=== PATIENT | male | born 1965 | race Caucasian/White ===

== ENCOUNTER 2019-09-05 17:21 | Inpatient (IN) ==
--- OUTSIDE RECORDS SUMMARY | 2019-09-05 17:24 | External Medical Summary | Continuity of Care Document ---
:1965 Author Name Steven M.Oneida Address Unavailable Unavailable , Care Team Providers Name Role Phone Unavailable Unavailable Unavailable Makayla Valdivia Unavailable [email or web address], [email or web address] Unavailable Unavailable Unavailable Unavailable Unavailable Assessments Assessed Problems:Encounter for preventive health examination Problems Acid reflux (530.81) (K21.9) Knee pain (719.46) (M25.569) Shoulder pain (719.41) (M25.519) Neck pain (723.1) (M54.2) Anxiety (300.00) (F41.9) Hypertension (401.9) (I10) Insomnia (780.52) (G47.00) Arthritis (716.90) (M19.90) Back pain (724.5) (M54.9) Allergies and Adverse Reactions Penicillins (Allergy) Reaction: Hives Tramadol (Adverse Event) Reaction: Palpi tations, Tachycardia Medications Lisinopril 40 MG Oral Tablet; TAKE 1.5 TABLET Daily , M.D. Start: 02-Feb-2017 Refills: 0 amLODIPine Besylate 10 MG Oral Tablet; Take 1 tablet daily , M.D. Start: 02-Feb-2017 Refills: 0 Crestor 20 MG Oral Tablet; Take 1 tablet daily , M.D. Start: 02-Feb-2017 Refills: 0 Gaby Low Dose 81 MG Oral Tablet Delayed Release; TAKE 1 TAB LET DAILY. , M.D. Start: 02-Feb-2017 Refills: 0 LORazepam 1 MG Oral Tablet; TAKE 1 TABLET Daily PRN , M.D. Start: 02-Feb-2017 Refills: 0 Potassium Chloride ER 20 MEQ Oral Tablet Extended Rele ase; TAKE 4 TABLET Daily , M.D. Start: 02-Feb-2017 Refills: 0 Folic Acid 1 MG Oral Tablet; Take 1 tablet daily , M.D. Refills: 0 Tylenol with Codeine #3 300-30 MG Oral Tablet; TAKE 2 TABLET Every 6 hours PRN , M.D. Refills: 0 Pantoprazole Sodium 40 MG Oral Tablet Delayed Release; Take 1 tablet daily , M.D. Refills: 0 Vitamin B-12 CR 500 MCG TBCR; TAKE 1 TABLET DAILY. , M.D. Refills: 0 Cyclobenzaprine HCl - 10 MG Oral Tablet; TAKE 2 TABLET Bedti Shea wilder Start: 02-Feb-2017 Refills: 0 Ketorolac Tromethamine 10 MG Oral Tablet ; TAKE 1 TABLET EVERY 6 HOURS NEEDED. Shea Benavides Start: 02-Feb-2017 Quantity: 20 Refills: 0 traZODone HCl - 50 MG Oral Tablet; TAKE 1 TABLET AT BE DTIME NEEDED. Shea Benavides Start: 02-Feb-2017 Quantity: 90 Refills: 2 Procedures History of Knee Arthroscopy (Therapeutic) Status: Completed History of Shoulder Surgery Status: Comp leted History of Appendectomy Status: Complete d Immunizations Immunizations not documented Social History - Smoking Status Never smoker Plan of Treatment Planned Observations Planned Goals not documented Results No Known Results Results not documented
[2019-09-05] MEDS ORDERED: dilTIAZem HCl 5 MG/ML 5 ML VIAL IV ONE (17:42)
[2019-09-05] MEDS ORDERED: dilTIAZem HCl 5 MG/ML 5 ML VIAL IV STA ×2 (17:43→17:51)
[2019-09-05] MEDS ORDERED: SODIUM CHLORIDE 0.9% 500 ML IV SCH (17:45)
[2019-09-05] MEDS ORDERED: dilTIAZem HCl 125 MG in DEXTROSE 5% 100 ML IV SCH ×2 (18:00→22:30)
[2019-09-05 18:01] LABS: Basophils # (auto) 0.05 K/uL (0-0.2); Basophils % (auto) 0.5 %; Eosinophils # (auto) 0.09 K/uL (0-0.5); Hemoglobin 12.3 g/dL (14.0-18.0); Immature Granulocytes # (auto) 0.02 K/uL (0.00-0.02); Immature Granulocytes % (auto) 0.2 %; Lymphocytes # (auto) 2.83 K/uL (1.2-3.4); Lymphocytes % (auto) 31.1 %; Mean Corpuscular Hemoglobin 21.1 pg (25-34); Mean Corpuscular Hgb Conc 33.2 g/dL (32-36); Mean Corpuscular Volume 63.5 fL (80-100); Mean Platelet Volume 10.4 fL (7.4-10.4); Monocytes # (auto) 0.59 K/uL (0.11-0.59); Monocytes % (auto) 6.5 %; Neutrophils # (auto) 5.53 K/uL (1.4-6.5); Neutrophils % (auto) 60.7 %; Platelet Count 316 K/uL (130-400); RDW Coefficient of Variation 16.7 % (11.5-14.5); RDW Standard Deviation 36.4 fL (36.4-46.3); Red Blood Count 5.83 M/uL (4.7-6.1); White Blood Count 9.11 K/uL (4.8-10.8)
[2019-09-05] MEDS ORDERED: ASPIRIN 81 MG CHEW PO STA (18:13)
--- NOTE | 2019-09-05 18:15 | XRay Report ---
XR chest 1V portable CLINICAL HISTORY: Chest Pain pain COMPARISON STUDY: 04/24/2013 FINDINGS: The bones soft tissues and hemidiaphragms are normal. The cardiomediastinal silhouette is n ormal. The lungs are clear. The pulmonary vasculature is normal. IMPRESSION: Negative chest. The above report was generated using voice recognition software. It may contain grammatical, syntax or spelling errors. Electronically signed by: Pedro Orlando M.D. 09/05/2019 6:13 PM
[2019-09-05 18:16] LABS: Est GFR (African American) 95.5; Potassium 3.2 mmol/L (3.5-5.1)
[2019-09-05 18:17] LABS: Albumin Level 5.1 gm/dl (3.4-5.0); BUN Creatinine Ratio 10.7 (10-20); Calcium 9.3 mg/dl (8.5-10.1); Creatinine Clr Calc Pharmacy 87.2 ml/min; Est GFR (Non-African American) 82.4; Magnesium 2.1 mg/dl (1.8-2.4)
[2019-09-05 18:27] LABS: Albumin Globulin Ratio 1.3 (0.9-2); Bilirubin,Total 2.5 mg/dl (0.2-1); Thyroid Stimulating Hormone 0.91 uIu/ml (0.300-4.500); Total Protein 9.1 gm/dl (6.4-8.2)
[2019-09-05] MEDS ORDERED: POTASSIUM CHLORIDE / WTR 10 MEQ/100 ML PLCT IV ONE (18:29)
[2019-09-05] MEDS ORDERED: POTASSIUM CHLORIDE 10 MEQ TABCR PO STA (18:29)
[2019-09-05 18:37] LABS: Microcytosis Present; Schistocytes 1+
[2019-09-05] MEDS ORDERED: METOPROLOL TARTRATE 25 MG TAB PO STA (19:29)
[2019-09-05] MEDS ORDERED: POTASSIUM CHLORIDE PWD 20 MEQ PACK PO ONE (19:30)
[2019-09-05 19:47] LABS: Partial Thromboplastin Time 25.9 Seconds (21.0-31.0)
[2019-09-05] MEDS ORDERED: METOPROLOL SUCC 50MG EXT REL TAB PO STA (20:10)
--- NOTE | 2019-09-05 20:11 | History & Physical Report ---
Date of Service September 05, 2019 Assessment & Plan (1) New onset atrial fibrillation: Rule out PE as precipitant given family history hypercoagulable state hypertension, slightly elevated upon arrival at the ER hyperlipidemia statin Rx Hypokalemia chronic anemia secondary to thalassemia, hemoglobin at baseline ongoing alcohol abuse PCU Titrate home beta-abbi, wean off Cardizem drip IV heparin for thromboembolic prophylaxis replace potassium CT chest PE study TTE, Cardiology consult (Dr. Casey as per family's request) RE new onset A. fib DT precautions DVT prophylaxis. Heparin Full code History of Present Illness Chief Complaint: Chest tightness, fluttering, shortness of breath Primary Care Provider: Karlos De Anda, History obtained from patient, family, and records. Medical history significant for hypertension, hyperlipidemia, history prothrombin gene, MTHFR mutation, chronic anemia secondary to thalassemia (ba seline hemoglobin of 11-12), osteoarthritis, ongoing alcohol abuse. Recent confinement April 2013 for severe hypokalemia attributed to diuretic Rx. Patient woke up yesterday morning with constant substernal pain described as tightness with fluttering heart sensation and nausea, SOB symptoms. Appetite not too good the last few days. Usual home stress. May have had flutter-like sensations lasting for about a few seconds intermittently over the last 20 years. Compliant with home beta-abbi Rx. At the ER, patient noted to be in A. fib, cardiac rate 170s at the highest. Patient given IV Lopressor, IV Cardizem bolus/drip initiated. Medical History as above Surgical History : Knee surgeries, shoulder surgeries, appendectomy Family History : Heart disease, blood clots, thalassemia Personal/Social history : Non-smoker, alcohol abuse, prior work as a sales and service officer Allergies Allergy/AdvReac Type Severity Reaction Status Date / Time Penicillins Allergy Mild HIVES Unverified 10/21/10 17:02 Home Medications Home Medications Medication Instructions Recorded Confirmed Type aspirin 81 mg PO HS 09/05/19 09/05/19 History folic acid 1 mg PO HS 09/05/19 09/05/19 History lisinopril 80 mg PO QAM 09/05/19 09/05/19 History oxycodone 5 mg PO BID PRN 09/05/19 09/05/19 History pantoprazole 40 mg PO QAM 09/05/19 09/05/19 History potassium chloride 20 meq PO QAM 09/05/19 09/05/19 History rosuvastatin 20 mg PO HS 09/05/19 09/05/19 History tizanidine 2 mg PO HS 09/05/19 09/05/19 History trazodone 50 mg PO HS 09/05/19 09/05/19 History Past Med/Surg History Medical History Hyperlipidemia (Chronic) Hypertension (Chronic) Thalassemia (Chronic Unknown) Family History Father Atrial fibrillation Social History Preferred Language: Maori Communication Ability: Effective Gis Engineer Required: No Beliefs That Will Affect Care: None marital status: Current Living Situation: Spouse and Family current occupational status: retired Other Information That Helps Us Care for You: No Feels Safe at Home: Yes Safety Concerns: Feels Safe At This Time Smoking Status: Never smoker Tobacco Type: smokeless tobacco ; Do You Dip or Chew Tobacco: Yes ; Second Hand Exposure: No ; Tobacco Cessation Education Requested by Patient: No Hx Alcohol Use: Yes Alcohol type: beer and hard liquor Hx Substance Use: No Review of Systems Review of Systems: As per HPI, all 10 systems reviewed, chronic postop shoulder pain, all other ROS negative Physical Exam Physical Exam: GENERAL: Comfortable, slightly anxious, no respiratory distress SKIN: Pallor , warm HEENT: Pale palpebral conjunctivae, no ptosis, dry buccal mucosa NECK : Supple, no tenderness CHEST : CTA, no tenderness HEART : Tachycardic, irregular, no obvious murmurs ABDOMEN: Some distention, nontender EXTREMITIES : No LE swelling/tenderness, no other conspicuous deformities noted NEUROLOGIC : Coherent, no facial asymmetry, no other gross focality Results & Data Vital Signs (Past 12 Hours) Vital Signs Temp Pulse Resp BP Pulse Ox 09/05/19 19:15 97 H 18 123/78 96 09/05/19 19:00 122 H 12 128/85 96 09/05/19 18:45 105 H 14 133/82 97 09/05/19 18:30 119 H 17 139/83 96 09/05/19 18:15 110 H 12 141/98 H 97 09/05/19 18:05 98 09/05/19 18:00 132 H 14 153/89 H 98 09/05/19 17:52 153 H 18 147/93 H 98 09/05/19 17:49 126 H 12 134/80 100 09/05/19 17:45 160 H 20 100 09/05/19 17:39 146 H 25 H 123/84 98 09/05/19 17:38 170 H 27 H 09/05/19 17:24 36.6 C 155 H 18 154/88 H 100 Laboratory Results Laboratory Results WBC 9.11 K/uL (4.8-10.8) 09/05/19 17:40 RBC 5.83 M/uL (4.7-6.1) 09/05/19 17:40 Hgb 12.3 g/dL (14.0-18.0) L 09/05/19 17:40 Hct 37.0 % (42-52) L 09/05/19 17:40 MCV 63.5 fL (80-100) L 09/05/19 17:40 MCH 21.1 pg (25-34) L 09/05/19 17:40 MCHC 33.2 g/dL (32-36) 09/05/19 17:40 RDW Std Deviation 36.4 fL (36.4-46.3) 09/05/19 17:40 RDW Coeff of Taniya 16.7 % (11.5-14.5) H 09/05/19 17:40 Plt Count 316 K/uL (130-400) 09/05/19 17:40 MPV 10.4 fL (7.4-10.4) 09/05/19 17:40 Immature Gran % (Auto) 0.2 % 09/05/19 17:40 Neut % (Auto) 60.7 % 09/05/19 17:40 Lymph % (Auto) 31.1 % 09/05/19 17:40 Bandera % (Auto) 6.5 % 09/05/19 17:40 Eos % (Auto) 1.0 % 09/05/19 17:40 Baso % (Auto) 0.5 % 09/05/19 17:40 Immature Gran # (Auto) 0.02 K/uL (0.00-0.02) 09/05/19 17:40 Neut # (Auto) 5.53 K/uL (1.4-6.5) 09/05/19 17:40 Lymph # (Auto) 2.83 K/uL (1.2-3.4) 09/05/19 17:40 Bandera # (Auto) 0.59 K/uL (0.11-0.59) 09/05/19 17:40 Eos # (Auto) 0.09 K/uL (0-0.5) 09/05/19 17:40 Baso # (Auto) 0.05 K/uL (0-0.2) 09/05/19 17:40 Microcytosis Present 09/05/19 17:40 Schistocytes 1+ 09/05/19 17:40 APTT 25.9 Seconds (21.0-31.0) 09/05/19 17:40 PTT Ratio 1.0 09/05/19 17:40 Sodium 140 mmol/L (136-145) 09/05/19 17:40 Potassium 3.2 mmol/L (3.5-5.1) L 09/05/19 17:40 Chloride 106 mmol/L (98-107) 09/05/19 17:40 Carbon Dioxide 25 mmol/L (21-32) 09/05/19 17:40 Anion Gap 9.0 (3-11) 09/05/19 17:40 BUN 11 mg/dl (7-18) 09/05/19 17:40 Creatinine 1.02 mg/dl (0.6-1.4) 09/05/19 17:40 Est Cr Clr Drug Dosing 87.2 ml/min 09/05/19 17:40 Est GFR ( Amer) 95.5 09/05/19 17:40 Est GFR (Non-Af Amer) 82.4 09/05/19 17:40 BUN/Creatinine Ratio 10.7 (10-20) 09/05/19 17:40 Glucose 106 mg/dl (70-99) H 09/05/19 17:40 Calcium 9.3 mg/dl (8.5-10.1) 09/05/19 17:40 Magnesium 2.1 mg/dl (1.8-2.4) 09/05/19 17:40 Total Bilirubin 2.5 mg/dl (0.2-1) H 09/05/19 17:40 AST 23 U/L (15-37) 09/05/19 17:40 ALT 36 U/L (12-78) 09/05/19 17:40 Alkaline Phosphatase 126 U/L (45-117) H 09/05/19 17:40 POC Troponin I < 0.03 ng/ml (0-0.045) 09/05/19 17:51 Total Protein 9.1 gm/dl (6.4-8.2) H 09/05/19 17:40 Albumin 5.1 gm/dl (3.4-5.0) H 09/05/19 17:40 Globulin 4.0 gm/dl (2.5-4.0) 09/05/19 17:40 Albumin/Globulin Ratio 1.3 (0.9-2) 09/05/19 17:40 TSH 0.910 uIu/ml (0.300-4.500) 09/05/19 17:40 Diagnostic Findings Chest x-ray : Negative EKG as per my interpretation : Rate 150, A. fib, normal axis, ST depression anterolateral leads
[2019-09-05] MEDS ORDERED: GABAPENTIN 1200MG ALCOHOL WITHDRAWAL LOAD PO STA (21:27)
[2019-09-05] MEDS ORDERED: ACETAMINOPHEN 325 MG TAB PO PRN (21:27)
[2019-09-05] MEDS ORDERED: LORazepam 2 MG/4 ML VIAL IV PRN (21:27)
[2019-09-05] MEDS ORDERED: PROMETHAZINE HCL 12.5 MG in SODIUM CHLORIDE 0.9% 50 ML IV PRN (21:27)
[2019-09-05] MEDS ORDERED: LORazepam 1 MG/2 ML VIAL IV PRN (21:27)
[2019-09-05] MEDS ORDERED: Heparin IV Standard *NO* Bolus STA (21:27)
[2019-09-05] MEDS ORDERED: LORazepam 3 MG/6 ML VIAL IV PRN (21:27)
[2019-09-05] MEDS ORDERED: ATIVAN IV ALCOHOL WITHDRAWL IV SCH (21:27)
[2019-09-05] MEDS ORDERED: MoRPHine SULFATE 4 MG/ML 1 ML CARP\\VIAL IV PRN (21:27)
--- NOTE | 2019-09-05 21:46 | Emergency Department Note ---
Entered by Lyndsay Hernandez acting as a scribe for History of Present Illness General Chief complaint: Chest Pain Stated complaint: CHEST PAIN, A FIB, SHORTNESS OF BREATH Source: patient Mode of arrival: ambulatory Limitations: no limitations History of Present Illness Provider complaint: Chest pain Onset (ago): day(s) (yesterday) Location: chest Radiation: non-radiation Pain Consistency: + constant Maximum Pain Intensity: 5 Current Pain Intensity: 5 Quality: + other (tightness) Associated symptoms: + nausea/vomiting, + shortness of breath and + other (Additional symptoms: heart fluttering); no diaphoresis Treatments prior to arrival: none The patient is a 54 year old male with a history of thalassemia, hypertension, and hyperlipidemia who presents to the Emergency Room with complaints of constant chest pain starting yesterday. The patient reports that he started experiencing chest tightness when he woke up yesterday and felt like he could not catch his breath. He states that his shortness of breath worsened today when he slightly exerted himself. He currently rates his tightness a 5/10. He notes that his tightness does not radiate and has been accompanied by nausea and heart fluttering but no diaphoresis. The patient reports that this is not the first time he has experienced heart fluttering. He states that he has experienced intermittent episodes of this over the past few years but never saw a doctor about it. He also notes that he has never been diagnosed with atrial fibrillation although his father has a history of it. He adds that he has no family history of heart attacks and that he is not a smoker. Home Medications Home Medications Medication Instructions Recorded Confirmed Type aspirin 81 mg PO HS 09/05/19 09/05/19 History folic acid 1 mg PO HS 09/05/19 09/05/19 History lisinopril 80 mg PO QAM 09/05/19 09/05/19 History oxycodone 5 mg PO BID PRN 09/05/19 09/05/19 History pantoprazole 40 mg PO QAM 09/05/19 09/05/19 History potassium chloride 20 meq PO QAM 09/05/19 09/05/19 History rosuvastatin 20 mg PO HS 09/05/19 09/05/19 History tizanidine 2 mg PO HS 09/05/19 09/05/19 History trazodone 50 mg PO HS 09/05/19 09/05/19 History Allergies Allergy/AdvReac Type Severity Reaction Status Date / Time Penicillins Allergy Mild HIVES Unverified 10/21/10 17:02 Past Med/Surg History Medical History Hyperlipidemia (Chronic) Hypertension (Chronic) Thalassemia (Chronic Unknown) Family History Father Atrial fibrillation Social History Preferred Language: Marshallese Communication Ability: Effective Dredge Operator Required: No Beliefs That Will Affect Care: None marital status: Current Living Situation: Spouse and Family current occupational status: retired Other Information That Helps Us Care for You: No Feels Safe at Home: Yes Safety Concerns: Feels Safe At This Time Smoking Status: Never smoker Tobacco Type: smokeless tobacco ; Do You Dip or Chew Tobacco: Yes ; Second Hand Exposure: No ; Tobacco Cessation Education Requested by Patient: No Hx Alcohol Use: Yes Alcohol type: beer and hard liquor Hx Substance Use: No Review of Systems See HPI for pertinent positives & negatives. and A total of 10 systems reviewed and were otherwise negative Physical Exam Vital Signs Vital Signs - 24 hr 09/05/19 17:24 09/05/19 17:38 09/05/19 17:39 Temperature 36.6 C Temperature Source Oral Sepsis Recent Fever Within 48 Hours No Sepsis New/Unexplained Change in Mental Status No Sepsis Action Taken by Nursing No Action Required Pulse Rate 155 H 170 H 146 H Pulse Rate from SpO2 Sensor 142 H Respiratory Rate 18 27 H 25 H Blood Pressure 154/88 H 123/84 Blood Pressure Mean 110 97 Blood Pressure Position Sitting Pulse Oximetry 100 98 Oxygen Delivery Method Room Air 09/05/19 17:45 09/05/19 17:49 09/05/19 17:52 Temperature Temperature Source Sepsis Recent Fever Within 48 Hours Sepsis New/Unexplained Change in Mental Status Sepsis Action Taken by Nursing Pulse Rate 160 H 126 H 153 H Pulse Rate from SpO2 Sensor 91 H 112 H 138 H Respiratory Rate 20 12 18 Blood Pressure 134/80 147/93 H Blood Pressure Mean 98 111 Blood Pressure Position Pulse Oximetry 100 100 98 Oxygen Delivery Method 09/05/19 18:00 09/05/19 18:05 09/05/19 18:15 Temperature Temperature Source Sepsis Recent Fever Within 48 Hours Sepsis New/Unexplained Change in Mental Status Sepsis Action Taken by Nursing Pulse Rate 132 H 110 H Pulse Rate from SpO2 Sensor 95 H 104 H Respiratory Rate 14 12 Blood Pressure 153/89 H 141/98 H Blood Pressure Mean 110 112 Blood Pressure Position Pulse Oximetry 98 98 97 Oxygen Delivery Method Room Air 09/05/19 18:30 09/05/19 18:45 09/05/19 19:00 Temperature Temperature Source Sepsis Recent Fever Within 48 Hours Sepsis New/Unexplained Change in Mental Status Sepsis Action Taken by Nursing Pulse Rate 119 H 105 H 122 H Pulse Rate from SpO2 Sensor 91 H 85 95 H Respiratory Rate 17 14 12 Blood Pressure 139/83 133/82 128/85 Blood Pressure Mean 101 99 99 Blood Pressure Position Pulse Oximetry 96 97 96 Oxygen Delivery Method Room Air 09/05/19 19:15 09/05/19 19:30 09/05/19 19:45 Temperature Temperature Source Sepsis Recent Fever Within 48 Hours Sepsis New/Unexplained Change in Mental Status Sepsis Action Taken by Nursing Pulse Rate 97 H 123 H 88 Pulse Rate from SpO2 Sensor 98 H 92 H 87 Respiratory Rate 18 20 18 Blood Pressure 123/78 132/85 147/91 H Blood Pressure Mean 93 100 109 Blood Pressure Position Pulse Oximetry 96 96 97 Oxygen Delivery Method Room Air Room Air Room Air 09/05/19 20:00 Temperature Temperature Source Sepsis Recent Fever Within 48 Hours Sepsis New/Unexplained Change in Mental Status Sepsis Action Taken by Nursing Pulse Rate 100 H Pulse Rate from SpO2 Sensor 92 H Respiratory Rate 15 Blood Pressure 158/100 H Blood Pressure Mean 119 Blood Pressure Position Pulse Oximetry 98 Oxygen Delivery Method Room Air Constitutional: Vital signs reviewed. Eyes: Pupils are equal round reactive to light. Conjunctiva are noninjected. ENT: Pharynx is clear without erythema or exudate. Mucous membranes are moist. Neck supple without meningeal signs. Respiratory: Clear to auscultation bilaterally. Breath sounds are equal bilaterally. Cardiovascular: Tachycardic rate of 150 and regular rhythm. No rubs or gallops. GI: Soft, nondistended and nontender. Bowel sounds are present. Musculoskeletal: No peripheral edema. No lower extremity tenderness. Integumentary: No cyanosis. Neurological: The patient is awake and alert. No focal deficits. Psychiatric: Normal affect. Course 1738: The patient was evaluated in room C9, and a complete history and physical examination were performed. 175: I checked on the patient and his chest pressure is now down to a 1. His heart rate is 120 BPM and his blood pressure is 140 systolic. 181: I reevaluated the patient and his heart rate is in the 110s now. His blood pressure is 153/94. He stated that he still has slight chest discomfort. We are waiting for the drip to come up from pharmacy. 1836: I checked on the patient and discussed his test results with him. He reported that he is feeling better but still has a small amount of chest discomfort. 1855: I reviewed the patient's case with Petra Paredes PA-C. Petra Enriquez will evaluate the patient for further management. Consultations Consultation #1: I reviewed the patient's case with Petra Paredes PA-C. Petra Enriquez will evaluate the patient for further management. Time: 18:55 Administered Medications Diltiazem HCl 125 mg/ Dextrose 125 mls @ 10 mls/hr IV .[id number] PORTER; Protocol Stop: 10/05/19 17:59 Last Admin: 09/05/19 18:19 Dose: 10 mg/hr, 10 mls/hr Documented by: [id number] Cosigned by: [id number] Discontinued Medications Aspirin (Aspirin Chew) 162 mg PO NOW STA Stop: 09/05/19 18:14 Last Admin: 09/05/19 18:19 Dose: 162 mg Documented by: [id number] Diltiazem HCl (Cardizem) 10 mg IV NOW STA Stop: 09/05/19 17:44 Last Admin: 09/05/19 17:45 Dose: 10 mg Documented by: [id number] Cosigned by: [id number] Diltiazem HCl (Cardizem) 10 mg IV NOW STA Stop: 09/05/19 17:52 Last Admin: 09/05/19 17:57 Dose: 10 mg Documented by: [id number] Cosigned by: [id number] Sodium Chloride (Nss) 500 mls @ 999 mls/hr IV .Q31M PORTER Stop: 09/05/19 18:15 Last Infusion: 09/05/19 18:27 Dose: 0 mls/hr Documented by: [id number] Admin: 09/05/19 17:48 Dose: 999 mls/hr Documented by: [id number] Potassium Chloride (K Jori / Wtr) 10 meq in 100 mls @ 100 mls/hr IV ONE ONE Stop: 09/05/19 19:28 Last Infusion: 09/05/19 20:19 Dose: 0 mls/hr Documented by: [id number] Admin: 09/05/19 19:11 Dose: 100 mls/hr Documented by: [id number] Metoprolol Succinate (Toprol Xl) 50 mg PO NOW STA Stop: 09/05/19 20:11 Last Admin: 09/05/19 20:22 Dose: 50 mg Documented by: [id number] Metoprolol Tartrate (Lopressor) 25 mg PO NOW STA Stop: 09/05/19 19:30 Last Admin: 09/05/19 20:41 Dose: Not Given Documented by: [id number] Potassium Chloride (Klor-Con Pwd) 40 meq PO NOW ONE Stop: 09/05/19 19:31 Last Admin: 09/05/19 20:22 Dose: 40 meq Documented by: [id number] Medical Decision Making Differential Diagnosis Differential diagnosis includes: unstable angina, ID, electrolyte abnormality, metabolic derangement, dysrhythmia, atrial fibrillation. Medical Records Attestation: I reviewed the patient's medical records. I did perform a limited focused review of portions of the patient's old chart on the electronic medical record. The patient has had no recent pertinent visits to this hospital. Home Medications Current Medication List: was personally reviewed by me Laboratory Data Attestation: I reviewed the patient's lab results. Result diagrams: 09/05/19 17:40 09/05/19 17:40 Lab Results 09/05/19 09/05/19 09/05/19 Range/Units 17:40 17:40 17:40 WBC 9.11 (4.8-10.8) K/uL RBC 5.83 (4.7-6.1) M/uL Hgb 12.3 L (14.0-18.0) g/dL Hct 37.0 L (42-52) % MCV 63.5 L (80-100) fL MCH 21.1 L (25-34) pg MCHC 33.2 (32-36) g/dL RDW Std Deviation 36.4 (36.4-46.3) fL RDW Coeff of Taniya 16.7 H (11.5-14.5) % Plt Count 316 (130-400) K/uL MPV 10.4 (7.4-10.4) fL Immature Gran % (Auto) 0.2 % Neut % (Auto) 60.7 % Lymph % (Auto) 31.1 % [place] % (Auto) 6.5 % Eos % (Auto) 1.0 % Baso % (Auto) 0.5 % Immature Gran # (Auto) 0.02 (0.00-0.02) K/uL Neut # (Auto) 5.53 (1.4-6.5) K/uL Lymph # (Auto) 2.83 (1.2-3.4) K/uL [place] # (Auto) 0.59 (0.11-0.59) K/uL Eos # (Auto) 0.09 (0-0.5) K/uL Baso # (Auto) 0.05 (0-0.2) K/uL Microcytosis Present Schistocytes 1+ APTT 25.9 (21.0-31.0) Seconds PTT Ratio 1.0 Sodium 140 (136-145) mmol/L Potassium 3.2 L (3.5-5.1) mmol/L Chloride 106 (98-107) mmol/L Carbon Dioxide 25 (21-32) mmol/L Anion Gap 9.0 (3-11) BUN 11 (7-18) mg/dl Creatinine 1.02 (0.6-1.4) mg/dl Est Cr Clr Drug Dosing 87.2 ml/min Est GFR ( Amer) 95.5 Est GFR (Non-Af Amer) 82.4 BUN/Creatinine Ratio 10.7 (10-20) Glucose 106 H (70-99) mg/dl Calcium 9.3 (8.5-10.1) mg/dl Magnesium 2.1 (1.8-2.4) mg/dl Total Bilirubin 2.5 H (0.2-1) mg/dl AST 23 (15-37) U/L ALT 36 (12-78) U/L Alkaline Phosphatase 126 H (45-117) U/L POC Troponin I (0-0.045) ng/ml Total Protein 9.1 H (6.4-8.2) gm/dl Albumin 5.1 H (3.4-5.0) gm/dl Globulin 4.0 (2.5-4.0) gm/dl Albumin/Globulin Ratio 1.3 (0.9-2) TSH 0.910 (0.300-4.500) uIu/ml 09/05/19 Range/Units 17:51 WBC (4.8-10.8) K/uL RBC (4.7-6.1) M/uL Hgb (14.0-18.0) g/dL Hct (42-52) % MCV (80-100) fL MCH (25-34) pg MCHC (32-36) g/dL RDW Std Deviation (36.4-46.3) fL RDW Coeff of Taniya (11.5-14.5) % Plt Count (130-400) K/uL MPV (7.4-10.4) fL Immature Gran % (Auto) % Neut % (Auto) % Lymph % (Auto) % [place] % (Auto) % Eos % (Auto) % Baso % (Auto) % Immature Gran # (Auto) (0.00-0.02) K/uL Neut # (Auto) (1.4-6.5) K/uL Lymph # (Auto) (1.2-3.4) K/uL [place] # (Auto) (0.11-0.59) K/uL Eos # (Auto) (0-0.5) K/uL Baso # (Auto) (0-0.2) K/uL Microcytosis Schistocytes APTT (21.0-31.0) Seconds PTT Ratio Sodium (136-145) mmol/L Potassium (3.5-5.1) mmol/L Chloride (98-107) mmol/L Carbon Dioxide (21-32) mmol/L Anion Gap (3-11) BUN (7-18) mg/dl Creatinine (0.6-1.4) mg/dl Est Cr Clr Drug Dosing ml/min Est GFR ( Amer) Est GFR (Non-Af Amer) BUN/Creatinine Ratio (10-20) Glucose (70-99) mg/dl Calcium (8.5-10.1) mg/dl Magnesium (1.8-2.4) mg/dl Total Bilirubin (0.2-1) mg/dl AST (15-37) U/L ALT (12-78) U/L Alkaline Phosphatase (45-117) U/L POC Troponin I < 0.03 (0-0.045) ng/ml Total Protein (6.4-8.2) gm/dl Albumin (3.4-5.0) gm/dl Globulin (2.5-4.0) gm/dl Albumin/Globulin Ratio (0.9-2) TSH (0.300-4.500) uIu/ml Imaging Data Radiologist's Impression: Radiology results as stated below per my review and the radiologist's interpretation: XR chest 1V portable CLINICAL HISTORY: Chest Pain pain COMPARISON STUDY: 04/24/2013 FINDINGS: The bones soft tissues and hemidiaphragms are normal. The cardiomediastinal silhouette is normal. The lungs are clear. The pulmonary vasculature is normal. IMPRESSION: Negative chest. The above report was generated using voice recognition software. It may contain grammatical, syntax or spelling errors. Electronically signed by: Pedro Orlando M.D. 09/05/2019 6:13 PM ECG Data Attestation: I personally reviewed and interpreted this ECG as follows: Indication: chest pain Rate (beats per minute): 157 Rhythm: atrial fibrillation (with RVR) Findings: + other (QRS is 82) and + nonspecific-ST abn; no PVC Blood Pressure Blood Pressure Findings: Elevated blood pressure Blood Pressure Disposition: Referred to patients primary care provider [facility] Narrative I did evaluate the patient as noted above. The patient is presenting with chest tightness with palpitations. IV access was established. The patient was placed on a continuous drill sharpener. I did order and personally review the patient's 12-lead EKG as described above. He has atrial fibrillation with RVR with nonspecific ST changes. I did treated with 2 boluses of Cardizem IV. He was also given normal saline 500 mL IV. He was placed on a Cardizem drip. I did order and personally reviewed the images of the patient's chest x-ray as described above. There is no evidence of acute abnormality. I did order and review the patient's blood work as noted in the electronic medical record. He has mild anemia. His potassium is 3.2. Troponin is negative. I did reassess the patient several times. His heart rate decreased significantly and his blood pressure improved. He states his chest discomfort is almost completely gone. He was given IV and oral potassium. I did discuss the test results with the patient and his . He was advised to stay in the hospital. I did discuss the case with the hospitalist and case loader operator. Impression & Plan Atrial fibrillation with RVR, New onset atrial fibrillation, Hypokalemia, Acute chest pain Critical Care Time Critical Care Time: Yes Total Critical Care Time: 35 I have personally spent approximately 35 minutes of critical care time in the direct management of this patient. This includes bedside care, interpretation of diagnostic studies, and testing, discussion with consultants, patient, and family members, and other required patient management activities. This 35 minutes is in excess of all separately billable procedures. Discharge Plan Visit Data *Final* Discharge Date/Time: 09/05/19 20:56 Chief Complaint: Chest Pain Stated Complaint: CHEST PAIN, A FIB, SHORTNESS OF BREATH ED Provider: Aj Velez Discharge Problem: Atrial fibrillation with RVR, New onset atrial fibrillation, Hypokalemia, Acute chest pain Patient Disposition: Admitted As Inpatient Discharge Instructions Interventions: ED Discharge Assessment Last Done: 09/05/19 20:56 The scribe's documentation has been prepared under my direction and personally reviewed by me in its entirety. I confirm that the note above accurately reflects all work, treatment, procedures, and medical decision making performed by me.
[2019-09-05] MEDS ORDERED: HEPARIN 25000 UNIT/500 ML D5W IV ONE (21:54)
[2019-09-05] MEDS ORDERED: MULTI-VITAMIN INFUSION 10 ML, THIAMINE HCL 100 MG, FOLIC ACID 1 MG, POTASSIUM CHLORIDE ... IV ONE (22:00)
[2019-09-05] MEDS ORDERED: GABAPENTIN 600 MG TAB PO SCH (22:00)
[2019-09-05] MEDS: HEPARIN SODIUM/DEXTROSE 25,000 UNITS/500 ML BAG IV SCH (22:11)
[2019-09-05] MEDS: FOLIC ACID 1 MG TAB PO SCH (22:40)
[2019-09-05] MEDS: TIZANIDINE HCL 4 MG TABLET PO SCH (22:40)
[2019-09-05] MEDS: TRAZODONE HCL 50 MG TAB PO SCH (22:41)
[2019-09-05] MEDS: ROSUVASTATIN CALCIUM 20 MG TAB PO SCH (22:42)
[2019-09-05] MEDS: OXYCODONE HCL IR 5 MG TAB (IMMEDIATE RELEASE) PO PRN (22:56)
[2019-09-05] MEDS ORDERED: POTASSIUM CHLORIDE 20 MEQ TABCR PO ONE (23:00)
[2019-09-06] MEDS ORDERED: OPTIRAY 320 125ml IV PRN (01:40)
[2019-09-06] MEDS: GABAPENTIN 600 MG TAB PO SCH ×3 (04:11→19:15)
[2019-09-06 07:02] LABS: Basophils # (auto) 0.03 K/uL (0-0.2); Basophils % (auto) 0.6 %; Eosinophils # (auto) 0.22 K/uL (0-0.5); Eosinophils % (auto) 4.7 %; Hemoglobin 9.8 g/dL (14.0-18.0); Immature Granulocytes # (auto) 0.01 K/uL (0.00-0.02); Immature Granulocytes % (auto) 0.2 %; Lymphocytes % (auto) 48.6 %; Mean Corpuscular Hemoglobin 20.9 pg (25-34); Mean Corpuscular Hgb Conc 32.7 g/dL (32-36); Mean Platelet Volume 10.6 fL (7.4-10.4); Monocytes % (auto) 10.6 %; Neutrophils # (auto) 1.67 K/uL (1.4-6.5); Neutrophils % (auto) 35.3 %; Platelet Count 230 K/uL (130-400); RDW Coefficient of Variation 16.6 % (11.5-14.5); RDW Standard Deviation 37.2 fL (36.4-46.3); Red Blood Count 4.69 M/uL (4.7-6.1); White Blood Count 4.73 K/uL (4.8-10.8)
[2019-09-06 07:22] LABS: Partial Thromboplastin Ratio 1.6; Partial Thromboplastin Time 44.5 Seconds (21.0-31.0)
[2019-09-06] MEDS: OXYCODONE HCL IR 5 MG TAB (IMMEDIATE RELEASE) PO PRN ×3 (07:28→21:40)
[2019-09-06 07:29] LABS: BUN Creatinine Ratio 12.6 (10-20); Blood Urea Nitrogen 10 mg/dl (7-18); Calcium 8.6 mg/dl (8.5-10.1); Carbon Dioxide 25 mmol/L (21-32); Chloride 112 mmol/L (98-107); Creatinine Clr Calc Pharmacy 115.4 ml/min; Est GFR (African American) 118.4; Est GFR (Non-African American) 102.2; Glucose 105 mg/dl (70-99); Potassium 4.2 mmol/L (3.5-5.1); Sodium 142 mmol/L (136-145)
[2019-09-06 07:36] LABS: Troponin I < 0.015 ng/ml (0-0.045)
[2019-09-06 07:39] LABS: Hypochromasia Present; Microcytosis Present
[2019-09-06] MEDS ORDERED: INFLUENZA ADMINISTRATION CHARGE ONE (08:00)
[2019-09-06] MEDS ORDERED: INFLUENZA VIRUS QUAD VACCINE 0.5 ML SYR IM ONE (08:00)
[2019-09-06] MEDS ORDERED: METOPROLOL TARTRATE 1 MG/ML VIAL IV PRN (08:01)
[2019-09-06] MEDS: POTASSIUM CHLORIDE 10 MEQ TABCR PO SCH ×2 (08:17→21:29)
[2019-09-06] MEDS: LISINOPRIL 40 MG TAB PO SCH (08:17)
[2019-09-06] MEDS: PANTOprazole 40 MG TAB PO SCH (08:17)
[2019-09-06] MEDS: THIAMINE HCL 100 MG TAB PO SCH (08:17)
[2019-09-06] MEDS: MULTIVITAMIN TAB PO SCH (08:17)
[2019-09-06] MEDS ORDERED: METOPROLOL SUCC 50MG EXT REL TAB PO SCH (09:00)
[2019-09-06] MEDS ORDERED: LISINOPRIL 40 MG TAB PO SCH (09:00)
--- NOTE | 2019-09-06 09:02 | CT Scan Report ---
CT ANGIOGRAPHY OF THE CHEST, PULMONARY EMBOLUS PROTOCOL CLINICAL HISTORY: Chest pain. Evaluate for pulmonary embolus. COMPARISON STUDY: Radiograph September 05, 2019. TECHNIQUE: Following IV administration of 119 mL of Optiray-320, helical axial images of the chest we re obtained utilizing the pulmonary embolus protocol. Maximal intensity projections and sagittal and coronal reformats were viewed on an independent 3D workstation. IV contrast was administered withou t complication. Automated exposure control was utilized for the study. A dose lowering technique wa s utilized adhering to the principles of ALARA. CT DOSE: 628.82 mGy.cm FINDINGS: No pulmonary emboli are identified. The size of the heart is normal. There is no pericardi al effusion. There is no thoracic lymphadenopathy. Central airways are patent. No pneumothorax or ple ural effusion is noted. Linear and groundglass opacities reflect atelectasis. There is no consolidati on to suggest pneumonia. Bony thorax and upper abdomen are unremarkable. IMPRESSION: 1. No pulmonary emboli identified. 2. No acute intrathoracic findings. Electronically signed by: Magan Gamboa M.D. 09/06/2019 9:00 AM
[2019-09-06] MEDS ORDERED: HEPARIN IV BOLUS 3,000 UNITS in SYRINGE 0 ML IV ONE (11:00)
[2019-09-06] MEDS ORDERED: SOTALOL HCL 80 MG TAB PO ONE (12:41)
--- NOTE | 2019-09-06 12:49 | Cardiology Consultation ---
Date of Consultation September 06, 2019 Assessment & Plan (1) Atrial fibrillation with RVR: (2) New onset atrial fibrillation: (3) Thalassemia: This patient is symptomatic with his atrial fibrillation. The diltiazem was discontinued and he is now only on metoprolol. His heart rates are not well controlled. I am going to start him on a sotalol load. I will start sotalol 40 mg twice daily and titrate once we see the response and his QT interval. I would continue the metoprolol was started in the sotalol however I will decrease the dose to 25 mg twice daily. Please continue the heparin. I will review the echocardiogram. History of Present Illness Attending Physician: Onel Anguiano MD History of Present Illness This is a 54-year-old male patient with no prior history of heart disease. He does have the mutation for hypercoagulability but has been on no anticoagulants. He is treated for hypertension. There is a past several days he is not felt well. He is felt his heart racing. He has been dyspneic with activity and experiencing some light dizziness. He presented to the emergency department and was found to be in atrial fibrillation with RVR. He denies chest pain. He has had no syncope or presyncope. Allergies Allergy/AdvReac Type Severity Reaction Status Date / Time Penicillins Allergy Mild HIVES Unverified 10/21/10 17:02 Home Medications Home Medications Medication Instructions Recorded Confirmed Type aspirin 81 mg PO HS 09/05/19 09/05/19 History folic acid 1 mg PO HS 09/05/19 09/05/19 History lisinopril 80 mg PO QAM 09/05/19 09/05/19 History oxycodone 5 mg PO BID PRN 09/05/19 09/05/19 History pantoprazole 40 mg PO QAM 09/05/19 09/05/19 History potassium chloride 20 meq PO QAM 09/05/19 09/05/19 History rosuvastatin 20 mg PO HS 09/05/19 09/05/19 History tizanidine 2 mg PO HS 09/05/19 09/05/19 History trazodone 50 mg PO HS 09/05/19 09/05/19 History Patient History Medical History Hyperlipidemia (Chronic) Hypertension (Chronic) Thalassemia (Chronic Unknown) Family History Father Atrial fibrillation Social History Preferred Language: Chinese Communication Ability: Effective 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 Beliefs That Will Affect Care: None marital status: Current Living Situation: Spouse and Family current occupational status: retired Other Information That Helps Us Care for You: No Feels Safe at Home: Yes Safety Concerns: Feels Safe At This Time Smoking Status: Never smoker Tobacco Type: smokeless tobacco ; Do You Dip or Chew Tobacco: Yes ; Second Hand Exposure: No ; Tobacco Cessation Education Requested by Patient: No Hx Alcohol Use: Yes Alcohol type: beer and hard liquor Hx Substance Use: No Review of Systems Review of Systems: All systems reviewed & are unremarkable except as noted in HPI & below Nothing additional to add Physical Exam Physical Exam: General: no acute distress and stated age Head: normocephalic, no masses, lesions, tenderness or abnormalities Eyes: conjunctiva are pink and non-injected, sclera clear Neck: supple, no adenopathy, no bruits, normal jugular venous pulse, no hepatojugular reflux Chest: normal shape and normal respiratory effort Lungs: clear to auscultation and percussion Cardiac Exam: - regular rate & rhythm, no murmurs gallops or rubs - normal S1, normal S2 Pulses: 2(+) throughout Abdomen: abdomen soft, non-tender, no abnormal masses and no hepatosplenomegaly Musculoskeletal: no gait disturbance, no joint inflammation, no deforming arthritis Extremities: no edema and no cyanosis Neuro: grossly normal exam Results & Data Vital Signs (Past 12 Hours) Vital Signs Temp Pulse Pulse Resp BP BP Pulse Ox 09/06/19 11:34 37.2 C 74 16 133/60 94 09/06/19 10:41 119 H 146/79 H 09/06/19 07:50 36.7 C 115 H 20 128/79 92 09/06/19 03:27 36.5 C 67 18 100/64 95 Laboratory Results Laboratory Results - last 24 hr 09/05/19 09/05/19 09/05/19 17:40 17:40 17:40 WBC 9.11 RBC 5.83 Hgb 12.3 L Hct 37.0 L MCV 63.5 L MCH 21.1 L MCHC 33.2 RDW Std Deviation 36.4 RDW Coeff of Taniya 16.7 H Plt Count 316 MPV 10.4 Immature Gran % (Auto) 0.2 Neut % (Auto) 60.7 Lymph % (Auto) 31.1 [place] % (Auto) 6.5 Eos % (Auto) 1.0 Baso % (Auto) 0.5 Immature Gran # (Auto) 0.02 Neut # (Auto) 5.53 Lymph # (Auto) 2.83 [place] # (Auto) 0.59 Eos # (Auto) 0.09 Baso # (Auto) 0.05 Hypochromasia Microcytosis Present Schistocytes 1+ APTT 25.9 PTT Ratio 1.0 Sodium 140 Potassium 3.2 L Chloride 106 Carbon Dioxide 25 Anion Gap 9.0 BUN 11 Creatinine 1.02 Est Cr Clr Drug Dosing 87.2 Est GFR ( Amer) 95.5 Est GFR (Non-Af Amer) 82.4 BUN/Creatinine Ratio 10.7 Glucose 106 H Calcium 9.3 Magnesium 2.1 Total Bilirubin 2.5 H AST 23 ALT 36 Alkaline Phosphatase 126 H POC Troponin I Troponin I Total Protein 9.1 H Albumin 5.1 H Globulin 4.0 Albumin/Globulin Ratio 1.3 TSH 0.910 09/05/19 09/06/19 09/06/19 17:51 06:16 06:16 WBC 4.73 L RBC 4.69 L Hgb 9.8 L Hct 30.0 L MCV 64.0 L MCH 20.9 L MCHC 32.7 RDW Std Deviation 37.2 RDW Coeff of Taniya 16.6 H Plt Count 230 MPV 10.6 H Immature Gran % (Auto) 0.2 Neut % (Auto) 35.3 Lymph % (Auto) 48.6 [place] % (Auto) 10.6 Eos % (Auto) 4.7 Baso % (Auto) 0.6 Immature Gran # (Auto) 0.01 Neut # (Auto) 1.67 Lymph # (Auto) 2.30 [place] # (Auto) 0.50 Eos # (Auto) 0.22 Baso # (Auto) 0.03 Hypochromasia Present Microcytosis Present Schistocytes APTT PTT Ratio Sodium 142 Potassium 4.2 D Chloride 112 H Carbon Dioxide 25 Anion Gap 5.0 BUN 10 Creatinine 0.77 Est Cr Clr Drug Dosing 115.4 Est GFR ( Amer) 118.4 Est GFR (Non-Af Amer) 102.2 BUN/Creatinine Ratio 12.6 Glucose 105 H Calcium 8.6 Magnesium Total Bilirubin AST ALT Alkaline Phosphatase POC Troponin I < 0.03 Troponin I < 0.015 Total Protein Albumin Globulin Albumin/Globulin Ratio TSH 09/06/19 06:58 WBC RBC Hgb Hct MCV MCH MCHC RDW Std Deviation RDW Coeff of Taniya Plt Count MPV Immature Gran % (Auto) Neut % (Auto) Lymph % (Auto) [place] % (Auto) Eos % (Auto) Baso % (Auto) Immature Gran # (Auto) Neut # (Auto) Lymph # (Auto) [place] # (Auto) Eos # (Auto) Baso # (Auto) Hypochromasia Microcytosis Schistocytes APTT 44.5 H PTT Ratio 1.6 Sodium Potassium Chloride Carbon Dioxide Anion Gap BUN Creatinine Est Cr Clr Drug Dosing Est GFR ( Amer) Est GFR (Non-Af Amer) BUN/Creatinine Ratio Glucose Calcium Magnesium Total Bilirubin AST ALT Alkaline Phosphatase POC Troponin I Troponin I Total Protein Albumin Globulin Albumin/Globulin Ratio TSH Medications Administered Current Inpatient Medications Acetaminophen (Tylenol) 325 mg PO Q4H PRN PRN Reason: Pain or Fever Stop: 10/05/19 21:26 Aspirin (Ecotrin Ectab) 81 mg PO HS [facility] Stop: 10/06/19 20:59 Folic Acid (Folvite) 1 mg PO HS [facility] Stop: 10/05/19 21:26 Last Admin: 09/05/19 22:40 Dose: 1 mg Documented by: Gabapentin (Neurontin) 600 mg PO Q12H [facility] Stop: 09/08/19 10:01 Gabapentin (Neurontin) 600 mg PO Q8H [facility] Stop: 09/07/19 10:01 Gabapentin (Neurontin) 600 mg PO Q24H [facility] Stop: 09/09/19 09:01 Heparin Sodium/Dextrose (Heparin Sodium/Dextrose) 25,000 units in 500 mls @ 32 mls/hr IV .[id number] [facility]; Protocol Stop: 10/05/19 21:26 Last Titration: 09/06/19 11:14 Dose: 1,600 units/hr, 32 mls/hr Documented by: Lorazepam (Ativan) 1 mg in 2 mls @ 2 mls/min IV UD PRN; Protocol PRN Reason: EtOH Withdrawl AWSS Score 6,7 Stop: 10/05/19 21:26 Lorazepam (Ativan) 2 mg in 4 mls @ 4 mls/min IV UD PRN; Protocol PRN Reason: EtOH Withdrawl AWSS Score 8,9 Stop: 10/05/19 21:26 Lorazepam (Ativan) 3 mg in 6 mls @ 4 mls/min IV ONCE PRN; Protocol PRN Reason: EtOH Withdrawl AWSS Score >=10 Stop: 10/05/19 21:26 Promethazine HCl 12.5 mg/ (Sodium Chloride) 50.5 mls @ 202 mls/hr IV Q6H PRN PRN Reason: Nausea And Vomiting Stop: 10/05/19 21:26 Ioversol (Optiray 320 125ml) 119 ml IV ONCE PRN PRN Reason: Interaction Checking Stop: 09/10/19 01:39 Last Admin: 09/06/19 01:41 Dose: 1 ml Documented by: Lisinopril (Zestril) [facility] [place] Stop: 10/06/19 08:59 Last Admin: 09/06/19 08:17 Dose: 40 mg Documented by: Metoprolol Succinate (Toprol Xl) 25 mg PO BID [facility] Stop: 10/06/19 20:59 Metoprolol Tartrate (Lopressor) 5 mg IV Q6 PRN PRN Reason: Tachycardia Stop: 10/06/19 11:59 Last Admin: 09/06/19 10:41 Dose: 5 mg Documented by: Miscellaneous (Ativan Iv Alcohol Withdrawl) 1 ea IV UD [facility]; Protocol Stop: 10/05/19 21:26 Morphine Sulfate (Morphine Sulfate) 4 mg IV Q6H PRN PRN Reason: Pain Stop: 09/19/19 21:26 Last Admin: 09/06/19 01:54 Dose: 4 mg Documented by: Multivitamins (Multivitamin Tab) [facility] [place] Stop: 10/06/19 08:59 Last Admin: 09/06/19 08:17 Dose: 1 tab Documented by: Oxycodone HCl (Roxicodone Immediate Rel) 5 mg PO QID PRN PRN Reason: Pain Stop: 09/19/19 21:41 Last Admin: 09/06/19 07:28 Dose: 5 mg Documented by: Pantoprazole Sodium (Protonix) 40 mg PO QAM [facility] Stop: 10/06/19 08:59 Last Admin: 09/06/19 08:17 Dose: 40 mg Documented by: Potassium Chloride (Klor-Con M10) 20 meq PO BID [facility] Stop: 10/06/19 08:59 Last Admin: 09/06/19 08:17 Dose: 20 meq Documented by: Rosuvastatin Calcium (Crestor) 20 mg PO [facility] Stop: 10/05/19 21:26 Last Admin: 09/05/19 22:42 Dose: 20 mg Documented by: Sotalol HCl (Betapace) 40 mg PO BID [facility] Stop: 10/06/19 20:59 Sotalol HCl (Betapace) 40 mg PO NOW ONE Stop: 09/06/19 12:42 Thiamine HCl (Vitamin B-1) 100 [facility] [place] Stop: 10/06/19 08:59 Last Admin: 09/06/19 08:17 Dose: 100 mg Documented by: Tizanidine HCl (Zanaflex) 2 mg PO [facility] Stop: 10/05/19 21:26 Last Admin: 09/05/19 22:40 Dose: 2 mg Documented by: Trazodone HCl (Desyrel) 50 mg PO [facility] Stop: 10/05/19 21:26 Last Admin: 09/05/19 22:41 Dose: 50 mg Documented by:
--- NOTE | 2019-09-06 14:22 | Hospitalist Progress Note ---
Date of Service September 06, 2019 Assessment & Plan (1) New onset atrial fibrillation: New Onset Atrial Fibrillation with RVR Family H/O hypercoagulable state CTA: No pulmonary emboli identified. No acute intrathoracic findings. 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 fib RVR Denies any significant chest pain, shortness of breath, dizziness, nausea, abdominal pain On IV heparin drip No bleeding issues Review of Systems Review of Systems: All systems reviewed & are unremarkable except as noted in HPI & below Physical Exam Physical Exam: Physical Exam: Vitals signs as noted above General Appearance:Moderately built and nourished, no apparent distress Head: normocephalic, Atraumatic Eyes: normal inspection, EOMI Neck: supple, Trachea midline Respiratory/Chest: Normal breath sounds, CTA, No accessory muscle use Cardiovascular: Irregularly irregular, tachycardia, No murmur Abdomen/GI:Soft, Non tender, Bowel sounds present Extremities/Musculoskelatal:normal inspection, no edema Neurologic/Psych:AAOX3, grossly no focal neurological deficits Skin: normal color, warm Results & Data Vital Signs (Past 12 Hours) Vital Signs Temp Pulse Pulse Resp BP BP Pulse Ox 09/06/19 11:34 37.2 C 74 16 133/60 94 09/06/19 10:41 119 H 146/79 H 09/06/19 07:50 36.7 C 115 H 20 128/79 92 09/06/19 03:27 36.5 C 67 18 100/64 95 Laboratory Results Short CBC 09/05/19 09/06/19 Range/Units 17:40 06:16 WBC 9.11 4.73 L (4.8-10.8) K/uL Hgb 12.3 L 9.8 L (14.0-18.0) g/dL Hct 37.0 L 30.0 L (42-52) % Plt Count 316 230 (130-400) K/uL BMP 09/05/19 09/06/19 17:40 06:16 Sodium 140 142 Potassium 3.2 L 4.2 D Chloride 106 112 H Carbon Dioxide 25 25 BUN 11 10 Creatinine 1.02 0.77 Glucose 106 H 105 H Calcium 9.3 8.6 Cardiac Enzymes 09/06/19 Range/Units 06:16 Troponin I < 0.015 (0-0.045) ng/ml Liver Function 09/05/19 Range/Units 17:40 Total Bilirubin 2.5 H (0.2-1) mg/dl AST 23 (15-37) U/L ALT 36 (12-78) U/L Alkaline Phosphatase 126 H (45-117) U/L Albumin 5.1 H (3.4-5.0) gm/dl
[2019-09-06] MEDS: HEPARIN SODIUM/DEXTROSE 25,000 UNITS/500 ML BAG IV SCH (15:23)
[2019-09-06 17:33] LABS: Partial Thromboplastin Time 55.2 Seconds (21.0-31.0)
[2019-09-06] MEDS: SOTALOL HCL 80 MG TAB PO SCH (21:28)
[2019-09-06] MEDS: ROSUVASTATIN CALCIUM 20 MG TAB PO SCH (21:30)
[2019-09-06] MEDS: ASPIRIN 81 MG ECTAB PO SCH (21:30)
[2019-09-06] MEDS: TRAZODONE HCL 50 MG TAB PO SCH (21:30)
[2019-09-06] MEDS: METOPROLOL SUCC 25MG EXT REL TAB PO SCH (21:31)
[2019-09-06] MEDS: FOLIC ACID 1 MG TAB PO SCH (21:31)
[2019-09-06] MEDS: TIZANIDINE HCL 4 MG TABLET PO SCH (21:32)
[2019-09-07] MEDS: GABAPENTIN 600 MG TAB PO SCH ×3 (03:13→21:39)
[2019-09-07 05:48] LABS: Hematocrit (blood only) 32.9 % (42-52); Hemoglobin 10.5 g/dL (14.0-18.0); Mean Corpuscular Hemoglobin 20.5 pg (25-34); Mean Corpuscular Hgb Conc 31.9 g/dL (32-36); Mean Corpuscular Volume 64.3 fL (80-100); Mean Platelet Volume 10.8 fL (7.4-10.4); Platelet Count 247 K/uL (130-400); RDW Coefficient of Variation 16.5 % (11.5-14.5); RDW Standard Deviation 37.4 fL (36.4-46.3); Red Blood Count 5.12 M/uL (4.7-6.1); White Blood Count 5.63 K/uL (4.8-10.8)
[2019-09-07 06:27] LABS: BUN Creatinine Ratio 13.8 (10-20); Calcium 8.7 mg/dl (8.5-10.1); Creatinine Clr Calc Pharmacy 88.9 ml/min; Est GFR (African American) 97.8; Est GFR (Non-African American) 84.4; Magnesium 2.1 mg/dl (1.8-2.4); Potassium 3.7 mmol/L (3.5-5.1)
[2019-09-07 06:55] LABS: Partial Thromboplastin Time 54.8 Seconds (21.0-31.0)
[2019-09-07] MEDS: HEPARIN SODIUM/DEXTROSE 25,000 UNITS/500 ML BAG IV SCH (07:54)
[2019-09-07] MEDS: SOTALOL HCL 80 MG TAB PO SCH ×2 (08:27→21:40)
[2019-09-07] MEDS: POTASSIUM CHLORIDE 10 MEQ TABCR PO SCH ×2 (08:28→21:37)
[2019-09-07] MEDS: METOPROLOL SUCC 25MG EXT REL TAB PO SCH ×2 (08:28→21:39)
[2019-09-07] MEDS: LISINOPRIL 40 MG TAB PO SCH (08:28)
[2019-09-07] MEDS: THIAMINE HCL 100 MG TAB PO SCH (08:28)
[2019-09-07] MEDS: PANTOprazole 40 MG TAB PO SCH (08:28)
[2019-09-07] MEDS: MULTIVITAMIN TAB PO SCH (08:28)
[2019-09-07] MEDS ORDERED: FOLIC ACID 1 MG TAB PO SCH (09:00)
[2019-09-07] MEDS ORDERED: SOTALOL HCL 80 MG TAB PO ONE (12:30)
--- NOTE | 2019-09-07 12:30 | Cardiology Progress Note ---
Date of Service September 07, 2019 Assessment & Plan (1) Atrial fibrillation with RVR: (2) New onset atrial fibrillation: (3) Thalassemia: (4) Prothrombin gene mutation: The patient continues to be in atrial fibrillation. His heart rates remain high and I am going to increase his sotalol. His QTC is below 450. I will increase his sotalol 80 mg twice daily. We will continue on heparin. He will have a WENDI guided cardioversion tomorrow. Subjective The patient has no new cardiac complaints. He remains in atrial fibrillation. QT interval on the EKG is adequate. Review of Systems Review of Systems: All systems reviewed & are unremarkable except as noted in HPI & below Nothing additional. Physical Exam Physical Exam: General: no acute distress and stated age Head: normocephalic, no masses, lesions, tenderness or abnormalities Eyes: conjunctiva are pink and non-injected, sclera clear Neck: supple, no adenopathy, no bruits, normal jugular venous pulse, no hepatojugular reflux Chest: normal shape and normal respiratory effort Lungs: clear to auscultation and percussion Cardiac Exam: - regular rate & rhythm, no murmurs gallops or rubs - normal S1, normal S2 Pulses: 2(+) throughout Abdomen: abdomen soft, non-tender, no abnormal masses and no hepatosplenomegaly Musculoskeletal: no gait disturbance, no joint inflammation, no deforming arthritis Extremities: no edema and no cyanosis Neuro: grossly normal exam Results & Data Vital Signs (Past 12 Hours) Vital Signs Temp Pulse Resp BP Pulse Ox 09/07/19 11:31 36.7 C 100 H 18 126/65 96 09/07/19 06:28 36.9 C 79 19 105/75 94 09/07/19 04:00 37.1 C 71 20 96/71 L 95 Laboratory Results Laboratory Results - last 24 hr 09/06/19 09/07/19 09/07/19 16:59 05:18 05:18 WBC 5.63 RBC 5.12 Hgb 10.5 L Hct 32.9 L MCV 64.3 L MCH 20.5 L MCHC 31.9 L RDW Std Deviation 37.4 RDW Coeff of Taniya 16.5 H Plt Count 247 MPV 10.8 H APTT 55.2 H* PTT Ratio 2.0 Sodium 140 Potassium 3.7 Chloride 109 H Carbon Dioxide 25 Anion Gap 6.0 BUN 14 Creatinine 1.00 Est Cr Clr Drug Dosing 88.9 Est GFR ( Amer) 97.8 Est GFR (Non-Af Amer) 84.4 BUN/Creatinine Ratio 13.8 Glucose 100 H Calcium 8.7 Magnesium 2.1 09/07/19 06:09 WBC RBC Hgb Hct MCV MCH MCHC RDW Std Deviation RDW Coeff of Taniya Plt Count MPV APTT 54.8 H* PTT Ratio 2.0 Sodium Potassium Chloride Carbon Dioxide Anion Gap BUN Creatinine Est Cr Clr Drug Dosing Est GFR ( Amer) Est GFR (Non-Af Amer) BUN/Creatinine Ratio Glucose Calcium Magnesium Medications Administered Current Inpatient Medications Acetaminophen (Tylenol) 325 mg PO Q4H PRN PRN Reason: Pain or Fever Stop: 10/05/19 21:26 Last Admin: 09/06/19 21:41 Dose: 325 mg Documented by: Aspirin (Ecotrin Ectab) 81 mg PO [facility] Stop: 10/06/19 20:59 Last Admin: 09/06/19 21:30 Dose: 81 mg Documented by: Folic Acid (Folvite) 1 mg PO [facility] Stop: 10/05/19 21:26 Last Admin: 09/06/19 21:31 Dose: 1 mg Documented by: Gabapentin (Neurontin) 600 mg PO Q12H [facility] Stop: 09/08/19 10:01 Gabapentin (Neurontin) 600 mg PO Q24H [facility] Stop: 09/09/19 09:01 Heparin Sodium/Dextrose (Heparin Sodium/Dextrose) 25,000 units in 500 mls @ 32 mls/hr IV .[id number] [facility]; Protocol Stop: 10/05/19 21:26 Last Admin: 09/07/19 07:54 Dose: 1,600 units/hr, 32 mls/hr Documented by: Lorazepam (Ativan) 1 mg in 2 mls @ 2 mls/min IV UD PRN; Protocol PRN Reason: EtOH Withdrawl AWSS Score 6,7 Stop: 10/05/19 21:26 Lorazepam (Ativan) 2 mg in 4 mls @ 4 mls/min IV UD PRN; Protocol PRN Reason: EtOH Withdrawl AWSS Score 8,9 Stop: 10/05/19 21:26 Lorazepam (Ativan) 3 mg in 6 mls @ 4 mls/min IV ONCE PRN; Protocol PRN Reason: EtOH Withdrawl AWSS Score >=10 Stop: 10/05/19 21:26 Promethazine HCl 12.5 mg/ (Sodium Chloride) 50.5 mls @ 202 mls/hr IV Q6H PRN PRN Reason: Nausea And Vomiting Stop: 10/05/19 21:26 Ioversol (Optiray 320 125ml) 119 ml IV ONCE PRN PRN Reason: Interaction Checking Stop: 09/10/19 01:39 Last Admin: 09/06/19 01:41 Dose: 1 ml Documented by: Lisinopril (Zestril) [facility] Stop: 10/06/19 08:59 Last Admin: 09/07/19 08:28 Dose: 40 mg Documented by: Metoprolol Succinate (Toprol Xl) 25 mg PO BID [facility] Stop: 10/06/19 20:59 Last Admin: 09/07/19 08:28 Dose: 25 mg Documented by: Metoprolol Tartrate (Lopressor) 5 mg IV Q6 PRN PRN Reason: Tachycardia Stop: 10/06/19 11:59 Last Admin: 09/06/19 10:41 Dose: 5 mg Documented by: Miscellaneous (Ativan Iv Alcohol Withdrawl) 1 ea IV [facility]; Protocol Stop: 10/05/19 21:26 Morphine Sulfate (Morphine Sulfate) 4 mg IV Q6H PRN PRN Reason: Pain Stop: 09/19/19 21:26 Last Admin: 09/06/19 01:54 Dose: 4 mg Documented by: Multivitamins (Multivitamin Tab) 1 tab PO [facility] Stop: 10/06/19 08:59 Last Admin: 09/07/19 08:28 Dose: 1 tab Documented by: Oxycodone HCl (Roxicodone Immediate Rel) 5 mg PO QID PRN PRN Reason: Pain Stop: 09/19/19 21:41 Last Admin: 09/06/19 21:40 Dose: 5 mg Documented by: Pantoprazole Sodium (Protonix) 40 [facility] Stop: 10/06/19 08:59 Last Admin: 09/07/19 08:28 Dose: 40 mg Documented by: Potassium Chloride (Klor-Con M10) 20 meq PO BID [facility] Stop: 10/06/19 08:59 Last Admin: 09/07/19 08:28 Dose: 20 meq Documented by: Rosuvastatin Calcium (Crestor) 20 mg PO HS [facility] Stop: 10/05/19 21:26 Last Admin: 09/06/19 21:30 Dose: 20 mg Documented by: Sotalol HCl (Betapace) 80 mg PO BID [facility] Stop: 10/07/19 20:59 Thiamine HCl (Vitamin B-1) 100 mg PO [facility] Stop: 10/06/19 08:59 Last Admin: 09/07/19 08:28 Dose: 100 mg Documented by: Tizanidine HCl (Zanaflex) 2 mg PO [facility] Stop: 10/05/19 21:26 Last Admin: 09/06/19 21:32 Dose: 2 mg Documented by: Trazodone HCl (Desyrel) 50 mg PO [facility] Stop: 10/05/19 21:26 Last Admin: 09/06/19 21:30 Dose: 50 mg Documented by:
--- NOTE | 2019-09-07 15:32 | Hospitalist Progress Note ---
Date of Service September 07, 2019 Assessment & Plan (1) New onset atrial fibrillation: New Onset Atrial Fibrillation with RVR Family H/O hypercoagulable state CTA: No pulmonary emboli identified. No acute intrathoracic findings. Normal TSH Off Cardizem ggt Continue sotalol increased to 80 mg twice daily Also on Metoprolol succinate 25 mg twice daily ON IV Heparin for anticoagulation ECHO: Mild concentric LVH, ejection fraction 55 to 60%, LV wall motion normal, borderline left & right atrial enlargement, moderate MR, mild AR Monitor electrolytes, QTC Plan for cardioversion tomorrow Appreciate cardiology input Hypertension BP stable Continue current meds Monitor Hyperlipidemia on Statin Hypokalemia Replace and monitor as needed Normal Magnesium levels Chronic anemia Secondary to thalassemia No bleeding issues Monitor CBC 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 fib Denies any significant chest pain, shortness of breath, dizziness, nausea, abdominal pain On IV heparin drip Plan for cardioversion tomorrow Review of Systems Review of Systems: All systems reviewed & are unremarkable except as noted in HPI & below Physical Exam Physical Exam: Physical Exam: Vitals signs as noted above General Appearance:Moderately built and nourished, no apparent distress Head: normocephalic, Atraumatic Eyes: normal inspection, EOMI Neck: supple, Trachea midline Respiratory/Chest: Normal breath sounds, CTA, No accessory muscle use Cardiovascular: Irregularly irregular, tachycardia, No murmur Abdomen/GI:Soft, Non tender, Bowel sounds present Extremities/Musculoskelatal:normal inspection, no edema Neurologic/Psych:AAOX3, grossly no focal neurological deficits Skin: normal color, warm Results & Data Vital Signs (Past 12 Hours) Vital Signs Temp Pulse Resp BP Pulse Ox 09/07/19 11:31 36.7 C 100 H 18 126/65 96 09/07/19 06:28 36.9 C 79 19 105/75 94 09/07/19 04:00 37.1 C 71 20 96/71 L 95 Laboratory Results Short CBC 09/07/19 Range/Units 05:18 WBC 5.63 (4.8-10.8) K/uL Hgb 10.5 L (14.0-18.0) g/dL Hct 32.9 L (42-52) % Plt Count 247 (130-400) K/uL BMP 09/07/19 05:18 Sodium 140 Potassium 3.7 Chloride 109 H Carbon Dioxide 25 BUN 14 Creatinine 1.00 Glucose 100 H Calcium 8.7
[2019-09-07] MEDS: TIZANIDINE HCL 4 MG TABLET PO SCH (21:37)
[2019-09-07] MEDS: TRAZODONE HCL 50 MG TAB PO SCH (21:38)
[2019-09-07] MEDS: ROSUVASTATIN CALCIUM 20 MG TAB PO SCH (21:38)
[2019-09-07] MEDS: FOLIC ACID 1 MG TAB PO SCH (21:39)
[2019-09-07] MEDS: ASPIRIN 81 MG ECTAB PO SCH (21:39)
[2019-09-08] MEDS: HEPARIN SODIUM/DEXTROSE 25,000 UNITS/500 ML BAG IV SCH ×2 (00:42→15:59)
[2019-09-08 06:52] LABS: Hematocrit (blood only) 33.4 % (42-52); Hemoglobin 10.9 g/dL (14.0-18.0)
[2019-09-08 06:57] LABS: Partial Thromboplastin Ratio 1.9
[2019-09-08 07:03] LABS: BUN Creatinine Ratio 9.6 (10-20); Calcium 8.9 mg/dl (8.5-10.1); Creatinine Clr Calc Pharmacy 89.8 ml/min; Est GFR (Non-African American) 85.4; Partial Thromboplastin Time 51.3 Seconds (21.0-31.0); Potassium 4.2 mmol/L (3.5-5.1)
[2019-09-08] MEDS ORDERED: MIDAZOLAM HCL 1 MG/ML 2ML VIAL ONE (09:16)
--- NOTE | 2019-09-08 09:16 | Anesthesiology Consultation ---
Date of Service September 08, 2019 Assessment & Plan (1) Encounter for pre-operative examination: Chart Review Chart Review: Acceptable Risk for Surgery and Patient NOT seen in Pre Admission Testing Consults Requested none History Surgery Operation Date: 09/08/19 09:00 Proposed Procedures p Transesophageal Echo w/Anesthesia - Benson Godoy DO Height/Weight Height: 5 ft 11 in Weight: 86.7 kg Allergies Allergy/AdvReac Type Severity Reaction Status Date / Time Penicillins Allergy Mild HIVES Unverified 10/21/10 17:02 Medications Home Medications Medication Instructions Recorded Confirmed Last Taken aspirin 81 mg PO HS 09/05/19 09/05/19 09/04/19 folic acid 1 mg PO HS 09/05/19 09/05/19 09/04/19 lisinopril 80 mg PO QAM 09/05/19 09/05/19 09/05/19 oxycodone 5 mg PO BID PRN 09/05/19 09/05/19 09/05/19 5mg pantoprazole 40 mg PO QAM 09/05/19 09/05/19 09/05/19 potassium chloride 20 meq PO QAM 09/05/19 09/05/19 09/05/19 rosuvastatin 20 mg PO HS 09/05/19 09/05/19 09/04/19 tizanidine 2 mg PO HS 09/05/19 09/05/19 09/04/19 trazodone 50 mg PO HS 09/05/19 09/05/19 09/04/19 Active Medications Generic Name Dose Route Start Last Admin Trade Name Freq PRN Reason Stop Dose Admin Acetaminophen 325 mg 09/05/19 21:27 09/06/19 21:41 Tylenol PO 10/05/19 21:26 325 mg Q4H PRN Administration Pain or Fever Aspirin 81 mg 09/06/19 21:00 09/07/19 21:39 Ecotrin Ectab PO 10/06/19 20:59 81 mg HS PORTER Administration Folic Acid 1 mg 09/05/19 21:27 09/07/19 21:39 Folvite PO 10/05/19 21:26 1 mg HS PORTER Administration Gabapentin 600 mg 09/07/19 22:00 09/07/19 21:39 Neurontin PO 09/08/19 10:01 600 mg Q12H PORTER Administration Heparin Sodium/Dextrose 25,000 units in 500 mls @ 32 mls/hr 09/05/19 21:27 09/08/19 07:20 Heparin Sodium/Dextrose IV 10/05/19 21:26 1,600 units/hr .[id number] PORTER 32 mls/hr Titration Protocol 1,600 UNITS/HR Ioversol 119 ml 09/06/19 01:40 09/06/19 01:41 Optiray 320 125ml IV 09/10/19 01:39 1 ml ONCE PRN Administration Interaction Checking Lisinopril 40 mg 09/06/19 09:00 09/07/19 08:28 Zestril PO 10/06/19 08:59 40 mg QAM PORTER Administration Metoprolol Succinate 25 mg 09/06/19 21:00 09/07/19 21:39 Toprol Xl PO 10/06/19 20:59 25 mg BID PORTER Administration Metoprolol Tartrate 5 mg 09/06/19 08:01 09/06/19 10:41 Lopressor IV 10/06/19 11:59 5 mg Q6 PRN Administration Tachycardia Morphine Sulfate 4 mg 09/05/19 21:27 09/06/19 01:54 Morphine Sulfate IV 09/19/19 21:26 4 mg Q6H PRN Administration Pain Multivitamins 1 tab 09/06/19 09:00 09/07/19 08:28 Multivitamin Tab PO 10/06/19 08:59 1 tab QAM PORTER Administration Oxycodone HCl 5 mg 09/05/19 21:42 09/06/19 21:40 Roxicodone Immediate Rel PO 09/19/19 21:41 5 mg QID PRN Administration Pain Pantoprazole Sodium 40 mg 09/06/19 09:00 09/07/19 08:28 Protonix PO 10/06/19 08:59 40 mg QAM PORTER Administration Potassium Chloride 20 meq 09/06/19 09:00 09/07/19 21:37 Klor-Con M10 PO 10/06/19 08:59 20 meq BID PORTER Administration Rosuvastatin Calcium 20 mg 09/05/19 21:27 09/07/19 21:38 Crestor PO 10/05/19 21:26 20 mg HS PORTER Administration Sotalol HCl 80 mg 09/07/19 21:00 09/07/19 21:40 Betapace PO 10/07/19 20:59 80 mg BID PORTER Administration Thiamine HCl 100 mg 09/06/19 09:00 09/07/19 08:28 Vitamin B-1 PO 10/06/19 08:59 100 mg QAM PORTER Administration Tizanidine HCl 2 mg 09/05/19 21:27 09/07/19 21:37 Zanaflex PO 10/05/19 21:26 2 mg HS PORTER Administration Trazodone HCl 50 mg 09/05/19 21:27 09/07/19 21:38 Desyrel PO 10/05/19 21:26 50 mg HS PORTER Administration Past Medical History Medical History Hyperlipidemia (Chronic) Hypertension (Chronic) Thalassemia (Chronic Unknown) Past Family History Family History Father Atrial fibrillation Social History Smoking Status: Never smoker tobacco type: smokeless tobacco Do You Dip or Chew Tobacco: Yes Hx Alcohol Use: Yes Alcohol type: beer and hard liquor alcohol intake frequency: 3 or more drinks per day Alcohol Intake Frequency Comment: 6 pack of beer and 8oz of briana daily. Hx Substance Use: No Physical Exam Vital Signs Last Vital Signs Temp 36.4 C L 09/08/19 07:01 Pulse 112 H 09/08/19 07:33 Resp 18 09/08/19 07:01 BP 109/65 09/08/19 07:01 Pulse Ox 95 09/08/19 07:01 Testing Laboratory Results 09/08/19 06:10 09/08/19 06:10 APTT 51.3 Seconds (21.0-31.0) H* 09/08/19 06:10 Electrocardiogram Date: 09/08/19 Findings: + AFIB @ (82) Echocardiogram Date: 09/06/19 EF: 55-60% LV Function: normal RWMA: + none Other Findings: + LVH (mild, concentric) Valvular Disease: + MR (moderate) mild aortic regurg, trace tricuspid regurg
--- NOTE | 2019-09-08 09:50 | History & Physical Bridge Note ---
Date of Service September 08, 2019 History & Physical Bridge Note I have examined the patient, reviewed the History & Physical and in the interval since the performance of the History & Physical I have noted the following changes of clinical significance: no changes noted. Pt remains in AF, RVR at rest, V rate 110-130 bpm. Heparin infusing. Informed consent for WENDI CV obtained. Pt elects to proceed.
--- NOTE | 2019-09-08 10:15 | Anesthesiology Progress Note ---
Date of Service September 08, 2019 Anesthesia Post Procedure Vital Signs Vital Signs: Temp Pulse Pulse Resp BP BP Pulse Ox 09/08/19 07:33 112 H 09/08/19 07:01 36.4 C L 51 L 18 109/65 95 09/08/19 03:40 36.5 C 80 18 124/77 96 09/08/19 00:00 09/07/19 23:40 36.6 C 88 18 107/53 L 92 09/07/19 21:00 09/07/19 19:19 36.7 C 84 12 121/81 97 09/07/19 15:25 36.9 C 88 16 116/76 95 09/07/19 11:31 36.7 C 100 H 18 126/65 96 Pulse Ox 09/08/19 07:33 09/08/19 07:01 09/08/19 03:40 09/08/19 00:00 92 09/07/19 23:40 09/07/19 21:00 97 09/07/19 19:19 09/07/19 15:25 09/07/19 11:31 Pain Intensity Chest: Pain Intensity: 0 Medial Neck: Pain Intensity: 5 Transfer of Care Handoff Completed per policy Notes Mental Status: alert / awake / arousable and participated in evaluation Nausea / Vomiting: adequately controlled Pain: adequately controlled Airway Patency, RR, SpO2: stable & adequate BP & HR: stable & adequate Hydration State: stable & adequate Anesthetic Complications: no major complications apparent and Pt Satisfied with anesthetic care
--- NOTE | 2019-09-08 10:17 | Cardioversion ---
Date of Service September 08, 2019 Electrical Cardioversion Rpt Electrical Cardioversion Report Date of Surgery September 08, 2019 Pre & Post Diagnosis preprocedure diagnosis: Atrial fibrillation Post procedure diagnosis: No LA or CADE thrombus, mild MR, successful conversion to sinus rhythm Operation Date: 09/08/19 09:00 Procedure WENDI guided direct current cardioversion: After informed consent was obtained and a time out was performed , the patient underwent a focussed WENDI with findings of no left atrial or left atrial appendage thrombus. Mild mitral regurgitation is present. Patient underwent synchronized direct current cardioversion receiving 200 J of biphasic energy x 1 dose with successful conversion to sinus rhythm. Pt received sedation as administered by the anesthesia team receiving 2 mg of IV versed,80 mg of IV lidocaine, and 130 mg of IV propofol. The patient tolerated the procedure well without complication. Multigrapher Benson Godoy DO Separator Operator Bettina Calix, ALLIE Estimated Blood Loss 0 Findings Consistent with Post-Op Diagnosis Anesthesia Type MAC Complications none Disposition Disposition: PCU
[2019-09-08] MEDS ORDERED: PROPOFOL IV EMULSION 10 MG/ML 20 ML VIAL IV ONE (10:21)
[2019-09-08] MEDS ORDERED: LIDOCAINE HCL 2% 2 ML VIAL/AMP(20MG/ML) INFIL ONE (10:21)
[2019-09-08] MEDS: POTASSIUM CHLORIDE 10 MEQ TABCR PO SCH ×2 (11:12→21:07)
[2019-09-08] MEDS: MULTIVITAMIN TAB PO SCH (11:12)
[2019-09-08] MEDS: SOTALOL HCL 80 MG TAB PO SCH ×2 (11:12→21:05)
[2019-09-08] MEDS: THIAMINE HCL 100 MG TAB PO SCH (11:13)
[2019-09-08] MEDS: PANTOprazole 40 MG TAB PO SCH (11:13)
[2019-09-08] MEDS: GABAPENTIN 600 MG TAB PO SCH (11:14)
[2019-09-08] MEDS: LISINOPRIL 40 MG TAB PO SCH (11:14)
[2019-09-08] MEDS: METOPROLOL SUCC 25MG EXT REL TAB PO SCH (11:14)
--- NOTE | 2019-09-08 12:37 | Cardiology Progress Note ---
Date of Service September 08, 2019 Assessment & Plan (1) Atrial fibrillation with RVR: Continue sotalol and will initiation status post T guided cardioversion for rhythm control strategy. I think antiarrhythmic therapy is necessary given the patient's mild to moderate left atrial chamber dilatation, and an effort to maintain sinus rhythm. He had received a dose of 40 mg of sotalol in the a.m. on 09/07/2019, and then 80 mg on the p.m. of 09/07/2019. He received another 80 mg this morning 09/08/2019. We will increase the sotalol to 120 mg twice daily. Discontinue metoprolol succinate. Stroke prophylaxis: Continue heparin infusion, pending determination if patient prefers to pay the $40 [id number] co-pay cost for Eliquis 5 mg twice daily or prefers Coumadin. (2) Hypertension: Continue lisinopril 40 mg daily. Sotalol started. (3) Thalassemia: Monitor hemoglobin given start of anticoagulation. (4) Prothrombin gene mutation: Given the patient's stroke risk factors in the setting of paroxysmal atrial fibrillation including hypertension, I believe anticoagulation is indicated from atrial fibrillation standpoint , irregardless of this finding. Subjective Chief complaint: Follow-up heart fluttering, exertional shortness of breath Subjective: Patient was seen prior to, during, and post transesophageal echocardiogram guided cardioversion this morning. Cardioversion was successful and he left the procedure room in sinus rhythm. Review of Systems Review of Systems: All systems reviewed & are unremarkable except as noted in HPI & below Physical Exam Physical Exam: Temp Pulse Resp BP Pulse Ox 36.5 C 79 16 119/80 96 09/08/19 11:54 09/08/19 12:07 09/08/19 11:54 09/08/19 11:54 09/08/19 11:54 Constitutional: WD/WN, vitals as above Cardiovascular: RRR, no murmur, no edema Heart Sounds: + murmur (1/6 SM) Vessels: no JVD Extremities: no edema Gastrointestinal (Abdomen): normal bowel sounds, soft, nontender, no hepatosplenomegaly Neurologic: PERRL, EOMI, accommodation nl, no face palsy, no dysarthria Results & Data Vital Signs (Past 12 Hours) Vital Signs Temp Pulse Pulse Resp BP Pulse Ox 09/08/19 12:07 79 09/08/19 11:54 36.5 C 78 16 119/80 96 09/08/19 11:07 76 18 114/76 92 09/08/19 10:39 72 20 113/79 94 09/08/19 10:32 36.6 C 77 18 113/77 95 09/08/19 07:33 112 H 09/08/19 07:01 36.4 C L 51 L 18 109/65 95 09/08/19 03:40 36.5 C 80 18 124/77 96
--- NOTE | 2019-09-08 13:04 | Communication Note ---
Date of Service: September 08, 2019 Spoke to patient. He is agreeable to the $40 / month out of pocket cost for Eliquis. Will stop heparin tonight at 21:00 and start first dose of Eliquis at same time. Orders entered. Discussed with pt's nurse.
--- NOTE | 2019-09-08 18:13 | Hospitalist Progress Note ---
Date of Service September 08, 2019 Assessment & Plan (1) New onset atrial fibrillation: New Onset Atrial Fibrillation with RVR Family H/O hypercoagulable state CTA: No pulmonary emboli identified. No acute intrathoracic findings. S/P successful DC cardioversion ECHO: Mild concentric LVH, ejection fraction 55 to 60%, LV wall motion normal, borderline left & right atrial enlargement, moderate MR, mild AR Normal TSH Off Cardizem ggt Continue sotalol increased to 120 mg twice daily Metoprolol succinate discontinued IV heparin to be transition to Eliquis Monitor electrolytes, QTC Appreciate cardiology input Hypertension BP stable Continue current meds Monitor Hyperlipidemia on Statin Hypokalemia Replace and monitor as needed Normal Magnesium levels Chronic anemia Secondary to thalassemia No bleeding issues Monitor CBC Ongoing alcohol abuse Corrective Therapist to quit smoking Alcohol use disorder DT precautions on Thiamine, folic acid DVT Px: Eliquis Code Status Full code Disposition Expect to discharge home when stable Subjective Patient is seen and examined at bedside Patient had successful direct current cardioversion this morning Feels better today Offers no complaints IV heparin being transitioned to Eliquis Denies any chest pain, shortness of breath, dizziness, nausea, abdominal pain, palpitations. Review of Systems Review of Systems: All systems reviewed & are unremarkable except as noted in HPI & below Physical Exam Physical Exam: Physical Exam: Vitals signs as noted above General Appearance:Moderately built and nourished, no apparent distress Head: normocephalic, Atraumatic Eyes: normal inspection, EOMI Neck: supple, Trachea midline Respiratory/Chest: Normal breath sounds, CTA Cardiovascular: S1, S2, No murmur Abdomen/GI:Soft, Non tender, Bowel sounds present Extremities/Musculoskelatal:normal inspection, no edema Neurologic/Psych:AAOX3, grossly no focal neurological deficits Skin: normal color, warm Results & Data Vital Signs (Past 12 Hours) Vital Signs Temp Pulse Pulse Resp BP Pulse Ox 09/08/19 15:09 36.8 C 78 15 113/76 91 09/08/19 12:07 79 09/08/19 11:54 36.5 C 78 16 119/80 96 09/08/19 11:07 76 18 114/76 92 09/08/19 10:39 72 20 113/79 94 09/08/19 10:32 36.6 C 77 18 113/77 95 09/08/19 07:33 112 H 09/08/19 07:01 36.4 C L 51 L 18 109/65 95 Laboratory Results Short CBC 09/08/19 Range/Units 06:10 Hgb 10.9 L (14.0-18.0) g/dL Hct 33.4 L (42-52) % BMP 09/08/19 06:10 Sodium 142 Potassium 4.2 Chloride 109 H Carbon Dioxide 26 BUN 10 Creatinine 0.99 Glucose 100 H Calcium 8.9
[2019-09-08] MEDS: APIXABAN 5 MG TABLET PO SCH (21:05)
[2019-09-08] MEDS: ASPIRIN 81 MG ECTAB PO SCH (21:06)
[2019-09-08] MEDS: FOLIC ACID 1 MG TAB PO SCH (21:06)
[2019-09-08] MEDS: ROSUVASTATIN CALCIUM 20 MG TAB PO SCH (21:06)
[2019-09-08] MEDS: TRAZODONE HCL 50 MG TAB PO SCH (21:07)
[2019-09-08] MEDS: TIZANIDINE HCL 4 MG TABLET PO SCH (21:08)
[2019-09-09 06:23] LABS: Hematocrit (blood only) 32.2 % (42-52); Hemoglobin 10.2 g/dL (14.0-18.0); Mean Corpuscular Hemoglobin 20.7 pg (25-34); Mean Corpuscular Hgb Conc 31.7 g/dL (32-36); Mean Corpuscular Volume 65.3 fL (80-100); Mean Platelet Volume 10.7 fL (7.4-10.4); Platelet Count 221 K/uL (130-400); RDW Coefficient of Variation 16.6 % (11.5-14.5); RDW Standard Deviation 37.4 fL (36.4-46.3); Red Blood Count 4.93 M/uL (4.7-6.1)
[2019-09-09 06:57] LABS: Creatinine Clr Calc Pharmacy 95.6 ml/min; Est GFR (African American) 106.7; Est GFR (Non-African American) 92.1; Potassium 3.8 mmol/L (3.5-5.1)
[2019-09-09] MEDS ORDERED: GABAPENTIN 600 MG TAB PO SCH (09:00)
[2019-09-09] MEDS: SOTALOL HCL 80 MG TAB PO SCH ×2 (09:02→21:06)
[2019-09-09] MEDS: APIXABAN 5 MG TABLET PO SCH ×2 (09:03→21:06)
[2019-09-09] MEDS: LISINOPRIL 40 MG TAB PO SCH (09:04)
[2019-09-09] MEDS: POTASSIUM CHLORIDE 10 MEQ TABCR PO SCH ×2 (09:04→21:04)
[2019-09-09] MEDS: OXYCODONE HCL IR 5 MG TAB (IMMEDIATE RELEASE) PO PRN (09:05)
[2019-09-09] MEDS: MULTIVITAMIN TAB PO SCH (09:05)
[2019-09-09] MEDS: THIAMINE HCL 100 MG TAB PO SCH (09:05)
[2019-09-09] MEDS: PANTOprazole 40 MG TAB PO SCH (09:05)
--- NOTE | 2019-09-09 10:04 | Cardiology Progress Note ---
Date of Service September 09, 2019 Assessment & Plan (1) Atrial fibrillation with RVR: Patient presented with complaint of exertional shortness of breath and "fluttering" sensation of the heart, that correlated with diagnosis of new onset atrial fibrillation with rapid ventricular response. A transesophageal echocardiogram performed 09/08 revealed no evidence of left atrial or left atrial appendage thrombus and he went on to have successful direct-current cardioversion a.m. of 09/08/2019. EKG performed this morning 09/08/2019 at 10:10 AM revealed sinus rhythm at 71 bpm with T wave inversion limited to lead III, stable corrected QT interval of 412 ms. He received his fourth therapeutic dose of sotalol this morning, 09/09/2019. Plan to continue telemetry observation to receive dose tonight and tomorrow. It is noted that the patient is on trazodone both as an outpatient and inpatient , and trazodone sotalol have the potential for an interaction that could prolong the QT interval, QT interval stable as noted. Plan on repeat EKG 09/09/2019. Stroke prophylaxis: Patient has been transitioned from heparin to Eliquis. Given his risk factors for coronary heart disease including age, hypertension, dyslipidemia, will likely need risk stratification perhaps with a combined low intensity exercise/pharmacologic nuclear stress test as an outpatient within the next month or so. (2) Prothrombin gene mutation: This test was drawn several years ago. No clinical thrombosis. (3) Hypertension: Blood pressure well controlled on combination of lisinopril 40 mg plus sotalol. (4) Hyperlipidemia: LDL cholesterol 44 mg/dL. Continue rosuvastatin. (5) Thalassemia: Mild stable anemia. Monitor as outpatient given addition of Eliquis. Subjective Chief complaint: Follow-up exertional shortness of breath Subjective: Patient feeling well. Remains in sinus rhythm with resting heart rates in the range of 60-70 beats per minute at rest this morning having undergone transesophageal echocardiogram guided cardioversion the morning of 09/08/2019. Review of Systems Review of Systems: All systems reviewed & are unremarkable except as noted in HPI & below Physical Exam Physical Exam: Temp Pulse Resp BP Pulse Ox 37.1 C 65 18 119/82 93 09/09/19 07:16 09/09/19 08:21 09/09/19 07:16 09/09/19 07:16 09/09/19 07:16 Constitutional: WD/WN, vitals as above Respiratory: normal respiratory effort, lungs clear to auscultation Cardiovascular: RRR, no murmur, no edema Vessels: no JVD Gastrointestinal (Abdomen): normal bowel sounds, soft, nontender, no hepatosplenomegaly Neurologic: PERRL, EOMI, accommodation nl, no face palsy, no dysarthria Results & Data Vital Signs (Past 12 Hours) Vital Signs Temp Pulse Pulse Resp BP Pulse Ox 09/09/19 08:21 65 09/09/19 07:16 37.1 C 67 18 119/82 93 09/09/19 04:00 36.5 C 63 16 108/65 95 09/09/19 01:15 58 L 09/08/19 23:55 36.9 C 76 18 101/60 91 Laboratory Results Lipids 09/09/19 Range/Units 05:46 Triglycerides 120 (0-150) mg/dl Cholesterol 124 (0-200) mg/dl HDL Cholesterol 56 mg/dl Cholesterol/HDL Ratio 2 CBC 09/09/19 Range/Units 05:46 WBC 5.60 (4.8-10.8) K/uL RBC 4.93 (4.7-6.1) M/uL Hgb 10.2 L (14.0-18.0) g/dL Hct 32.2 L (42-52) % Plt Count 221 (130-400) K/uL Comprehensive Metabolic Panel 09/09/19 Range/Units 05:46 Sodium 143 (136-145) mmol/L Potassium 3.8 (3.5-5.1) mmol/L Chloride 110 H (98-107) mmol/L Carbon Dioxide 26 (21-32) mmol/L BUN 10 (7-18) mg/dl Creatinine 0.93 (0.6-1.4) mg/dl Glucose 92 (70-99) mg/dl Calcium 9.0 (8.5-10.1) mg/dl Intake and Output 09/08/19 09/09/19 09/09/19 22:59 06:59 14:59 Intake Total 1022.934 / 1831.534 300 / 1831.534 Output Total 700 / 2275 Balance 1022.934 / -443.466 -400 / -443.466 Intake: IV 422.934 / 656.534 HEPARIN SODIUM/DEXTROSE 25,000 422.934 / 656.534 units In 500 ml @ 1,600 UNITS/ HR 32 mls/hr IV .[id number] [facility] Rx #:[id number] Oral 600 / 1175 300 / 1175 Output: Urine 700 / 2275 Other: Weight 88.9 kg Medications Administered Current Inpatient Medications Acetaminophen (Tylenol) 325 mg PO Q4H PRN PRN Reason: Pain or Fever Stop: 10/05/19 21:26 Last Admin: 09/06/19 21:41 Dose: 325 mg Documented by: Apixaban (Eliquis) 5 mg PO BID [facility] Stop: 10/08/19 20:59 Last Admin: 09/09/19 09:03 Dose: 5 mg Documented by: Aspirin (Ecotrin Ectab) 81 mg PO [facility] Stop: 10/06/19 20:59 Last Admin: 09/08/19 21:06 Dose: 81 mg Documented by: Folic Acid (Folvite) 1 mg PO [facility] Stop: 10/05/19 21:26 Last Admin: 09/08/19 21:06 Dose: 1 mg Documented by: Lorazepam (Ativan) 1 mg in 2 mls @ 2 mls/min IV UD PRN; Protocol PRN Reason: EtOH Withdrawl AWSS Score 6,7 Stop: 10/05/19 21:26 Lorazepam (Ativan) 2 mg in 4 mls @ 4 mls/min IV UD PRN; Protocol PRN Reason: EtOH Withdrawl AWSS Score 8,9 Stop: 10/05/19 21:26 Lorazepam (Ativan) 3 mg in 6 mls @ 4 mls/min IV ONCE PRN; Protocol PRN Reason: EtOH Withdrawl AWSS Score >=10 Stop: 10/05/19 21:26 Promethazine HCl 12.5 mg/ (Sodium Chloride) 50.5 mls @ 202 mls/hr IV Q6H PRN PRN Reason: Nausea And Vomiting Stop: 10/05/19 21:26 Ioversol (Optiray 320 125ml) 119 ml IV ONCE PRN PRN Reason: Interaction Checking Stop: 09/10/19 01:39 Last Admin: 09/06/19 01:41 Dose: 1 ml Documented by: [facility] ([facility]est[facility]) [facility] [place] Stop: 10/06/19 08:59 Last Admin: 09/09/19 09:04 Dose: 40 mg Documented by: Metoprolol Tartrate (Lopressor) 5 mg IV Q6 PRN PRN Reason: Tachycardia Stop: 10/06/19 11:59 Last Admin: 09/06/19 10:41 Dose: 5 mg Documented by: Morphine Sulfate (Morphine Sulfate) 4 mg IV Q6H PRN PRN Reason: Pain Stop: 09/19/19 21:26 Last Admin: 09/06/19 01:54 Dose: 4 mg Documented by: Multivitamins (Multivitamin Tab) [facility] [place] Stop: 10/06/19 08:59 Last Admin: 09/09/19 09:05 Dose: 1 tab Documented by: Oxycodone HCl (Roxicodone Immediate Rel) 5 mg PO QID PRN PRN Reason: Pain Stop: 09/19/19 21:41 Last Admin: 09/09/19 09:05 Dose: 5 mg Documented by: Pantoprazole Sodium (Protonix) [facility] [place] Stop: 10/06/19 08:59 Last Admin: 09/09/19 09:05 Dose: 40 mg Documented by: Potassium Chloride (Klor-Con M10) 20 meq PO BID [facility] Stop: 10/06/19 08:59 Last Admin: 09/09/19 09:04 Dose: 20 meq Documented by: Rosuvastatin Calcium (Crestor) 20 mg PO [facility] Stop: 10/05/19 21:26 Last Admin: 09/08/19 21:06 Dose: 20 mg Documented by: Sotalol HCl (Betapace) 120 mg PO BID [facility] Stop: 10/08/19 20:59 Last Admin: 09/09/19 09:02 Dose: 120 mg Documented by: Thiamine HCl (Vitamin B-1) [facility] [place] Stop: 10/06/19 08:59 Last Admin: 09/09/19 09:05 Dose: 100 mg Documented by: Tizanidine HCl (Zanaflex) 2 mg PO [facility] Stop: 10/05/19 21:26 Last Admin: 09/08/19 21:08 Dose: 2 mg Documented by: Trazodone HCl (Desyrel) 50 mg PO [facility] Stop: 10/05/19 21:26 Last Admin: 09/08/19 21:07 Dose: 50 mg Documented by:
[2019-09-09] MEDS ORDERED: ZOLPIDEM TARTRATE 5 MG TAB PO PRN (16:49)
--- NOTE | 2019-09-09 17:54 | Hospitalist Progress Note ---
Date of Service September 09, 2019 Assessment & Plan (1) New onset atrial fibrillation: New Onset Atrial Fibrillation with RVR Family H/O hypercoagulable state CTA: No pulmonary emboli identified. No acute intrathoracic findings. S/P successful DC cardioversion ECHO: Mild concentric LVH, ejection fraction 55 to 60%, LV wall motion normal, borderline left & right atrial enlargement, moderate MR, mild AR Normal TSH Off Cardizem ggt Continue sotalol increased to 120 mg twice daily Metoprolol succinate discontinued IV heparin to be transition to Eliquis Monitor electrolytes, QTC Appreciate cardiology input Needs stress test as outpatient for risk stratification Hypertension BP stable Continue current meds Monitor Hyperlipidemia on Statin Hypokalemia Replace and monitor as needed Normal Magnesium levels Chronic anemia Secondary to thalassemia No bleeding issues Monitor CBC Ongoing alcohol abuse Matrix Drier Tender to quit smoking Alcohol use disorder DT precautions on Thiamine, folic acid DVT Px: Eliquis Code Status Full code Disposition Expect to discharge home when stable Subjective Patient is seen and examined at bedside States having poor sleep overnight Otherwise feels better Remains in sinus Denies any chest pain, shortness of breath, dizziness, nausea, abdominal pain, palpitations. Review of Systems Review of Systems: All systems reviewed & are unremarkable except as noted in HPI & below Physical Exam Physical Exam: Physical Exam: Vitals signs as noted above General Appearance:Moderately built and nourished, no apparent distress Head: normocephalic, Atraumatic Eyes: normal inspection, EOMI Neck: supple, Trachea midline Respiratory/Chest: Normal breath sounds, CTA Cardiovascular: S1, S2, No murmur Abdomen/GI:Soft, Non tender, Bowel sounds present Extremities/Musculoskelatal:normal inspection, no edema Neurologic/Psych:AAOX3, grossly no focal neurological deficits Skin: normal color, warm Results & Data Vital Signs (Past 12 Hours) Vital Signs Temp Pulse Pulse Resp BP Pulse Ox 09/09/19 15:13 37.2 C 69 15 121/79 96 09/09/19 14:58 70 09/09/19 11:38 36.8 C 63 18 120/72 95 09/09/19 08:21 65 09/09/19 07:16 37.1 C 67 18 119/82 93 Laboratory Results Short CBC 09/09/19 Range/Units 05:46 WBC 5.60 (4.8-10.8) K/uL Hgb 10.2 L (14.0-18.0) g/dL Hct 32.2 L (42-52) % Plt Count 221 (130-400) K/uL BMP 09/09/19 05:46 Sodium 143 Potassium 3.8 Chloride 110 H Carbon Dioxide 26 BUN 10 Creatinine 0.93 Glucose 92 Calcium 9.0
[2019-09-09] MEDS: TIZANIDINE HCL 4 MG TABLET PO SCH (21:04)
[2019-09-09] MEDS: FOLIC ACID 1 MG TAB PO SCH (21:05)
[2019-09-09] MEDS: ROSUVASTATIN CALCIUM 20 MG TAB PO SCH (21:06)
[2019-09-09] MEDS: TRAZODONE HCL 50 MG TAB PO SCH (21:08)
[2019-09-10 03:07] VITALS: TEMP 98.2
[2019-09-10 06:21] LABS: Hematocrit (blood only) 32.9 % (42-52); Hemoglobin 10.8 g/dL (14.0-18.0); Mean Corpuscular Hgb Conc 32.8 g/dL (32-36); Mean Corpuscular Volume 63.9 fL (80-100); Mean Platelet Volume 10.1 fL (7.4-10.4); Platelet Count 220 K/uL (130-400); RDW Coefficient of Variation 16.6 % (11.5-14.5); Red Blood Count 5.15 M/uL (4.7-6.1); White Blood Count 5.34 K/uL (4.8-10.8)
[2019-09-10 06:53] LABS: Albumin Level 4.3 gm/dl (3.4-5.0); BUN Creatinine Ratio 10.7 (10-20); Calcium 9.9 mg/dl (8.5-10.1); Creatinine Clr Calc Pharmacy 97.7 ml/min; Est GFR (African American) 109.6; Est GFR (Non-African American) 94.5; Potassium 4.3 mmol/L (3.5-5.1)
[2019-09-10 06:55] LABS: Albumin Globulin Ratio 1.3 (0.9-2); Bilirubin,Total 1.7 mg/dl (0.2-1); Globulin 3.4 gm/dl (2.5-4.0); Total Protein 7.7 gm/dl (6.4-8.2)
[2019-09-10 07:53] VITALS: O2SAT 97
[2019-09-10] MEDS: APIXABAN 5 MG TABLET PO SCH (08:27)
[2019-09-10] MEDS: SOTALOL HCL 80 MG TAB PO SCH (08:27)
[2019-09-10] MEDS: POTASSIUM CHLORIDE 10 MEQ TABCR PO SCH (08:28)
[2019-09-10] MEDS: PANTOprazole 40 MG TAB PO SCH (08:29)
[2019-09-10] MEDS: THIAMINE HCL 100 MG TAB PO SCH (08:29)
[2019-09-10] MEDS: MULTIVITAMIN TAB PO SCH (08:29)
[2019-09-10] MEDS: LISINOPRIL 40 MG TAB PO SCH (08:29)
--- NOTE | 2019-09-10 10:36 | Cardiology Progress Note ---
Date of Service September 10, 2019 Assessment & Plan (1) Atrial fibrillation with RVR: Patient status post WENDI guide direct-current cardioversion on 09/08/2019. On transesophageal echocardiogram, only mild mitral regurgitation was present. Continue with rhythm control strategy, sotalol 120 mg p.o. twice daily, received 6 dose this morning. EKG is stable this morning 09/10/2019, sinus rhythm at 65 bpm, corrected QT C stable at 397 ms. As noted yesterday, patient is on trazodone for his chronic neck pain and sleep, which can contribute to QT prolongation, but his EKG has been stable during admission, with stable findings on telemetry and I think it is reasonable to proceed with treatment with the trazodone plus the sotalol. Stroke prophylaxis: Continue Eliquis 5 mg p.o. twice daily. If the patient determines he has cost concerns in the future, after the first month, we can transition him to Coumadin with the help of the [facility] anticoagulation clinic. He was advised of the importance regarding uninterrupted meticulous anticoagulation for the first month after cardioversion in order to reduce his risk of stroke. Patient would like to utilize [facility] [place]. In past I have observed difficulty in transmitting the order for(generic) sotalol 120 mg daily. Patient may either receive 80 mg tabls and take 1.5 tablets two times per day, or 120 mg tablets , one tablet two times per day but a call will need to be placed to the pharmacy to confirm the correct dose is received. Eliquis 5 mg by mouth 2 times per day, case management has provided a discount card. Will arrange follow up with me or Dr Hardy in 2-3 weeks. (2) Hypertension: Discharge on lisinopril 40 mg daily rather than 80 mg daily. Sotalol 120 mg p.o. twice daily. Okay to continue his prior to hospital potassium supplement of 20 mEq daily (3) Hyperlipidemia: (4) Elevated transaminase measurement: Patient has a long-standing history of dyslipidemia. Mild transaminase elevation noted today. He does have a history of alcohol use outside the hospital and is been counseled that he needs to cut back and quit in order to reduce his risk of recurrent atrial fibrillation. Continue prior to hospital dose of rosuvastatin. Plan to recheck liver function test as an outpatient. (5) Prothrombin gene mutation: (6) Thalassemia: Patient with findings of thalassemia with resultant mild anemia, history of prothrombin gene mutation noted on labs performed several years ago. Consider outpatient follow-up with hematology. Subjective Chief complaint: Follow-up atrial fibrillation with resultant exertional shortness of breath Subjective: Patient feels well. He is remained in sinus rhythm. An 11 beat run of narrow complex tachycardia, likely atrial fibrillation versus atrial flutter 150 bpm was observed at this morning 09/10/2019 at 5:59 AM with spontaneous conversion back to sinus rhythm. No significant ventricular arrhythmias, no significant PVCs. Review of Systems Review of Systems: All systems reviewed & are unremarkable except as noted in HPI & below Physical Exam Physical Exam: Temp Pulse Resp BP Pulse Ox 36.8 C 68 18 147/83 H 97 09/10/19 07:17 09/10/19 07:53 09/10/19 07:17 09/10/19 07:17 09/10/19 07:17 Constitutional: WD/WN, vitals as above Respiratory: normal respiratory effort, lungs clear to auscultation Cardiovascular: RRR, no murmur, no edema Gastrointestinal (Abdomen): normal bowel sounds, soft, nontender, no hepatosplenomegaly Neurologic: PERRL, EOMI, accommodation nl, no face palsy, no dysarthria Results & Data Vital Signs (Past 12 Hours) Vital Signs Temp Pulse Pulse Resp BP Pulse Ox 09/10/19 07:53 68 09/10/19 07:17 36.8 C 70 18 147/83 H 97 09/10/19 03:06 36.8 C 65 19 126/76 93 09/09/19 23:00 36.6 C 65 19 118/72 94 Laboratory Results Cardiac Enzymes 09/10/19 Range/Units 06:11 AST 60 H (15-37) U/L CBC 09/10/19 Range/Units 06:11 WBC 5.34 (4.8-10.8) K/uL RBC 5.15 (4.7-6.1) M/uL Hgb 10.8 L (14.0-18.0) g/dL Hct 32.9 L (42-52) % Plt Count 220 (130-400) K/uL Comprehensive Metabolic Panel 09/10/19 Range/Units 06:11 Sodium 143 (136-145) mmol/L Potassium 4.3 (3.5-5.1) mmol/L Chloride 110 H (98-107) mmol/L Carbon Dioxide 26 (21-32) mmol/L BUN 10 (7-18) mg/dl Creatinine 0.91 (0.6-1.4) mg/dl Glucose 102 H (70-99) mg/dl Calcium 9.9 (8.5-10.1) mg/dl AST 60 H (15-37) U/L ALT 81 H (12-78) U/L Alkaline Phosphatase 105 (45-117) U/L Total Protein 7.7 (6.4-8.2) gm/dl Albumin 4.3 (3.4-5.0) gm/dl Intake and Output 09/09/19 09/10/19 09/10/19 22:59 06:59 14:59 Intake Total 480 / 700 Output Total 300 / 300 Balance 180 / 400 Intake: Oral 480 / 700 Output: Urine 300 / 300 Other: Weight 87 kg
--- NOTE | 2019-09-10 11:11 | Hospitalist Progress Note ---
Date of Service September 10, 2019 Assessment & Plan (1) New onset atrial fibrillation: New Onset Atrial Fibrillation with RVR Family H/O hypercoagulable state CTA: No pulmonary emboli identified. No acute intrathoracic findings. S/P successful DC cardioversion ECHO: Mild concentric LVH, ejection fraction 55 to 60%, LV wall motion normal, borderline left & right atrial enlargement, moderate MR, mild AR Normal TSH Off Cardizem ggt Continue sotalol increased to 120 mg twice daily Metoprolol succinate discontinued IV heparin to be transition to Eliquis Monitor electrolytes, QTC Appreciate cardiology input Needs stress test as outpatient for risk stratification Needs follow up with Cardiology upon discharge Hypertension BP stable Amlodipine discontinued Continue Sotalol 120mg BID Lisinopril dose decreased from 80mg to 40mg daily Monitor Hyperlipidemia on Statin Hypokalemia Replace and monitor as needed Normal Magnesium levels Chronic anemia Secondary to thalassemia No bleeding issues Monitor CBC 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 Plan to be discharged home today Review of Systems Review of Systems: All systems reviewed & are unremarkable except as noted in HPI & below Physical Exam Physical Exam: Physical Exam: Vitals signs as noted above General Appearance:Moderately built and nourished, no apparent distress Head: normocephalic, Atraumatic Eyes: normal inspection, EOMI Neck: supple, Trachea midline Respiratory/Chest: Normal breath sounds, CTA Cardiovascular: S1, S2, No murmur Abdomen/GI:Soft, Non tender, Bowel sounds present Extremities/Musculoskelatal:normal inspection, no edema Neurologic/Psych:AAOX3, grossly no focal neurological deficits Skin: normal color, warm Results & Data Vital Signs (Past 12 Hours) Vital Signs Temp Pulse Pulse Resp BP Pulse Ox 09/10/19 07:53 68 09/10/19 07:17 36.8 C 70 18 147/83 H 97 09/10/19 03:06 36.8 C 65 19 126/76 93 Laboratory Results Short CBC 09/10/19 Range/Units 06:11 WBC 5.34 (4.8-10.8) K/uL Hgb 10.8 L (14.0-18.0) g/dL Hct 32.9 L (42-52) % Plt Count 220 (130-400) K/uL BMP 09/10/19 06:11 Sodium 143 Potassium 4.3 Chloride 110 H Carbon Dioxide 26 BUN 10 Creatinine 0.91 Glucose 102 H Calcium 9.9 Liver Function 09/10/19 Range/Units 06:11 Total Bilirubin 1.7 H (0.2-1) mg/dl AST 60 H (15-37) U/L ALT 81 H (12-78) U/L Alkaline Phosphatase 105 (45-117) U/L Albumin 4.3 (3.4-5.0) gm/dl
[2019-09-10 11:46] VITALS: BP 121/81; PULSE 70
--- NOTE | 2019-09-10 12:37 | Discharge Summary ---
Date of Service September 10, 2019 Admission HPI Per Admitting Provider History obtained from patient, family, and records. Medical history significant for hypertension, hyperlipidemia, history prothrombin gene, MTHFR mutation, chronic anemia secondary to thalassemia (baseline hemoglobin of 11-12), osteoarthritis, ongoing alcohol abuse. Recent confinement April 2013 for severe hypokalemia attributed to diuretic Rx. Patient woke up yesterday morning with constant substernal pain described as tightness with fluttering heart sensation and nausea, SOB symptoms. Appetite not too good the last few days. Usual home stress. May have had flutter-like sensations lasting for about a few seconds intermittently over the last 20 years. Compliant with home beta-abbi Rx. At the ER, patient noted to be in A. fib, cardiac rate 170s at the highest. Patient given IV Lopressor, IV Cardizem bolus/drip initiated. Medical History as above Surgical History : Knee surgeries, shoulder surgeries, appendectomy Family History : Heart disease, blood clots, thalassemia Personal/Social history : Non-smoker, alcohol abuse, prior work as a [employer] officer Admission Exam Per Admitting Provider GENERAL: Comfortable, slightly anxious, no respiratory distress SKIN: Pallor , warm HEENT: Pale palpebral conjunctivae, no ptosis, dry buccal mucosa NECK : Supple, no tenderness CHEST : CTA, no tenderness HEART : Tachycardic, irregular, no obvious murmurs ABDOMEN: Some distention, nontender EXTREMITIES : No LE swelling/tenderness, no other conspicuous deformities noted NEUROLOGIC : Coherent, no facial asymmetry, no other gross focality Principal Diagnosis Atrial fibrillation with RVR Hypokalemia Alcohol use disorder Discharge Data Allergies Allergy/AdvReac Type Severity Reaction Status Date / Time Penicillins Allergy Mild HIVES Unverified 10/21/10 17:02 Consultations 09/05/19 18:56 ED Decision to Admit Stat 09/05/19 21:27 Consult Cardiology Routine 09/07/19 12:40 Consult Anesthesiology Routine 09/08/19 07:24 Consult Anesthesiology Routine Procedures Performed Operation Date: 09/08/19 09:00 Actual Procedures p Echo Transesophageal - Benson Godoy DO s Cardioversion - Benson Godoy DO ECHO: ECHO: Mild concentric LVH, ejection fraction 55 to 60%, LV wall motion normal, borderline left & right atrial enlargement, moderate MR, mild AR Chest CTA: 1. No pulmonary emboli identified. 2. No acute intrathoracic findings. Ordered Studies 09/05/19 21:27 CT angio chest PE protocol Urgent Hospital Course (1) New onset atrial fibrillation: New Onset Atrial Fibrillation with RVR Family H/O hypercoagulable state CTA: No pulmonary emboli identified. No acute intrathoracic findings. S/P successful DC cardioversion ECHO: Mild concentric LVH, ejection fraction 55 to 60%, LV wall motion normal, borderline left & right atrial enlargement, moderate MR, mild AR Normal TSH Off Cardizem ggt Continue sotalol increased to 120 mg twice daily Metoprolol succinate discontinued IV heparin to be transition to Eliquis Monitor electrolytes, QTC Appreciate cardiology input Needs stress test as outpatient for risk stratification Needs follow up with Cardiology upon discharge Hypertension BP stable Amlodipine discontinued Continue Sotalol 120mg BID Lisinopril dose decreased from 80mg to 40mg daily Monitor Hyperlipidemia on Statin Hypokalemia Replace and monitor as needed Normal Magnesium levels Chronic anemia Secondary to thalassemia No bleeding issues Monitor CBC 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 Alcohol use disorder DT precautions on Thiamine, folic acid Counselled to quit drinking DVT Px: Eliquis Code Status Full code Disposition Plan to discharge home today Total Time Total Time Spent Total Time Spent (In Minutes): 39 minutes Total Time Includes: Examination of the Patient, Discharge Planning, Medication Reconciliation, Communication With Other Providers and Other Discharge Plan Discharge Items Patient Disposition: Home - Self-Care Reason For Visit: AFIB Discharge Diagnosis: Atrial Fibrillation with Rapid Ventricular Rate Activity: Resume your previous activity Exercise/Sports: Gradually increase as tolerated Non-emergency contact: Primary Care Provider and Him Coder Call non-emergency contact if: you have any medication questions, your symptoms worsen, your pain is not controlled, your pain is worsening, your pain is unusual for you, your pain is concerning for you and you have a fever Follow-up/Referrals: Karlos De Anda, [Primary Care Provider] - Diet: Heart Healthy Addtl Attending Provider Instructions: Follow up with your Primary Care Physician on Sep 15, 2019 at 1:05 PM Follow up with your Him Coder / in 2-3 weeks--Which will be scheduled Seek immediate medical attention if your symptoms reoccur or worsen Pending Studies at Discharge: No Stand-Alone Forms: Call Back Authorization, [facility], Smoking Cessation Medications and DC Order Prescriptions: New Eliquis 5 mg Tablet 5 mg PO BID Qty: 60 RF: 0 lisinopril [Zestril] 40 mg Tablet 40 mg PO QAM Qty: 30 RF: 1 thiamine HCl (vitamin B1) [Vitamin B-1] 100 mg Tablet 100 mg PO QAM Qty: 30 RF: 0 sotalol 120 mg tablet 120 mg PO BID Qty: 60 RF: 1 Continued potassium chloride 10 mEq capsule, extended release 20 meq PO QAM RF: 0 tizanidine 2 mg tablet 2 mg PO HS RF: 0 trazodone 50 mg tablet 50 mg PO HS RF: 0 pantoprazole 40 mg tablet,delayed release (DR/EC) 40 mg PO QAM RF: 0 folic acid 1 mg tablet 1 mg PO HS RF: 0 oxycodone 5 mg tablet 5 mg PO BID PRN (Reason: Pain) RF: 0 rosuvastatin 20 mg tablet 20 mg PO HS RF: 0 Discontinued lisinopril 40 mg tablet 80 mg PO QAM RF: 0 aspirin 81 mg Tablet,Delayed Release (Dr/Ec) 81 mg PO HS RF: 0 amlodipine 10 mg Tablet 10 mg PO DAILY RF: 0 Discharge Orders: Discharge Order (Routine); Ordered 09/10/19 Ordered By: Onel Booker/Other Patient Handouts: Vitamin B1 Thiamine Oral tablet, Apixaban Oral tablet, Sotalol Hydrochloride Oral tablet, Sotalol Hydrochloride Oral tablet [Atrial Arrhythmias], Lisinopril Oral tablet, AFL/Afib Admission Data Admit Date/Time: 09/05/19 20:15 Attending Provider: Onel Anguiano Admit Provider: Cam Munroe Primary Care Provider: Karlos De Anda Other Providers: Cam Munroe ; Sal Hardy ; Alireza Flynn ; Maria Dolores Land Other Interventions: Discharge Summary Assessment (RN) Last Done: 09/10/19 11:24 DC Date/Time DO NOT enter until pt leaves facility: 09/10/19 12:15
== END 2019-09-10 12:15 | disposition home or self-care (01) | DRG 309 ==
LOC: ED 17:21 → 2S 20:15